=== PATIENT | female | born 1980 | race American Indian/Alaskan Native ===

== ENCOUNTER 2021-09-20 18:14 | Inpatient (IN) | payer MEDICAID ==
[2021-09-20] MEDS ORDERED: MAGNESIUM SULFATE 4 GM/100 ML BAG IV ONE (19:45)
[2021-09-20 19:48] LABS: Alanine Aminotransferase 26 units/L (7-56)
[2021-09-20] MEDS: hydrALAZINE 20 MG/1 ML INJ IV PRN (19:51)
[2021-09-20] MEDS ORDERED: MAGNESIUM SULFATE 40GM/1000ML 40 GM/1,000 ML BAG IV SCH (20:00)
[2021-09-20 20:13] LABS: Hematocrit 33.7 % (30.3-42.9); Hemoglobin 11.2 gm/dl (10.1-14.3); Mean Corpuscular HGB Conc 33 % (30-34); Platelet Count 163 K/mm3 (140-440); Red Blood Count 4.91 M/mm3 (3.65-5.03); Red Cell Distribution Width 17.8 % (13.2-15.2)
[2021-09-20 20:20] LABS: Bacteria,Urine 1+ /HPF (Negative); Bilirubin,Urine NEG (Negative); Blood,Urine NEG (Negative); Color,Urine Yellow (Yellow); Mucus,Urine FEW /HPF; RBC,Urine < 1.0 /HPF (0.0-6.0); Urobilinogen,Urine < 2.0 mg/dL (<2.0)
[2021-09-20 20:27] LABS: Mean Corpuscular Volume 69 fl (79-97)
[2021-09-20] MEDS ORDERED: LACTATED RINGERS 1,000 ML IV ONE (20:42)
[2021-09-20] MEDS ORDERED: DINOPROSTONE 10 MG VAG SUPP VG ONE (23:20)
--- NOTE | 2021-09-21 00:59 | Ultrasound Report ---
ULTRASOUND OBSTETRIC LIMITED INDICATION / CLINICAL INFORMATION: wellbeing. Amniotic fluid index. Clinical Gestational Age (GA) in weeks, days: 37 weeks 6 days TECHNIQUE: Transabdominal. COMPARISON: OB ultrasound 07/28/2021 FINDINGS: HEART RATE (beats per minute): 146 AMNIOTIC FLUID INDEX (cm) = 3.8 (normal = 7-24 cm) PRESENTATION: Cephalic. ADDITIONAL FINDINGS: None. IMPRESSION: 1. Oligohydramnios. Ruptured membranes not excluded. Signer Name: Galo Sharma II, MD Signed: 09/21/2021 12:55 AM Workstation Name: [id number]
--- NOTE | 2021-09-21 02:31 | Ultrasound Report ---
US OB BPP wo non-stress INDICATION / CLINICAL INFORMATION: wellbeing COMPARISON: Limited OB ultrasound 09/20/2021 and biophysical profile 07/28/2021 FINDINGS: BREATHING MOVEMENT = 2 GROSS BODY MOVEMENT = 2 TONE = 2 QUALITATIVE AMNIOTIC FLUID VOLUME = 2 TOTAL BIOPHYSICAL SCORE = 8/8 heart rate 146 bpm. IMPRESSION: 1. biophysical profile score 8/8 Signer Name: Galo Sharma II, MD Signed: 09/21/2021 2:26 AM Workstation Name: [id number]
--- NOTE | 2021-09-21 03:27 | History and Physical Report ---
History of Present Illness Date of examination: 09/21/21 Date of admission: 09/20/2021 Chief complaint: Elevated B/P History of present illness: 40 yo, @ 38.1 wks, initiated care with [facility] at 10.6 wks gestation. Her has been complicated by AMA, covid-19, HSV2, cHTN, silent carrier for alpha thalessemia and [place]. She was sent to [facility] yesterday for elevated B/Ps and PIH work-up. B/Ps were found to be in severe range, admitted for Magnesium therapy and IOL. Reports +FM. Denies any VB or LOF. Labs: B+, antibody negative; rubella immune; VDRL non-reactive; HBsAg negative; HIV negative; Hep C negative; GC/Chlamydia negative; [place] low-risk; 1 hr gtt 110; GBS negative. Past History Past Medical History: hypertension, other (PCOS) Past Surgical History: breast surgery, other ([place] cyst excision) [employer] History: herpes Family/Genetic History: hypertension, other (aneurysm) Social history: , Lives alone, full code. denies: smoking, alcohol abuse, prescription drug abuse, IV drug use - Obstetrical History Expected Date of Delivery: 10/05/21 Actual Gestation: 38 Week(s) 0 Day(s) : 2 Para: 0 Hx # Term Pregnancies: 0 Number of Pregnancies: 0 Spontaneous Abortions: 1 Induced : 0 Number of Living Children: 0 Medications and Allergies Allergies Allergy/AdvReac Type Severity Reaction Status Date / Time amoxicillin [Amoxicillin] Allergy Swelling Verified 09/20/21 20:31 pork derived (porcine) Allergy Hives Verified 09/20/21 20:31 soy Allergy Hives Verified 09/20/21 20:32 strawberry [[place]] Allergy Itching Verified 09/03/21 14:13 Home Medications Medication Instructions Recorded Confirmed Last Taken Type Promethazine /Codeine 5 ml PO Q6H PRN #60 ml 08/15/13 Unknown Rx [Phenergan/Codeine 6.25-10 mg/5 ml] Active Meds: Active Medications Hydralazine HCl (Hydralazine 20 Mg/1 Ml Inj) 10 mg IV Q30MIN PRN PRN Reason: Hypertension Last Admin: 09/20/21 19:51 Dose: 10 mg Magnesium Sulfate (Magnesium Sulfate 40gm/1000ml) 40 gm in 1,000 mls @ 50 mls/hr IV DIRECT [facility] Last Admin: 09/20/21 20:57 Dose: 2 gm/hr, 50 mls/hr Labetalol HCl (Labetalol 200 Mg Tab) 200 mg PO BID [facility] Last Admin: 09/20/21 21:02 Dose: 200 mg Review of Systems All systems: negative - Vital Signs Vital signs: Vital Signs Temp 98.1 F 09/20/21 18:50 Temp Pulse Resp BP Pulse Ox 98.8 F 87 112/58 94 09/20/21 20:34 09/21/21 03:13 09/21/21 03:08 09/21/21 03:13 - Physical Exam Cardiovascular: Regular rate Lungs: Positive: Normal air movement Abdomen: Positive: other (gravid, obese) Uterus: Positive: other (S>D) Extremities: Positive: edema Deep Tendon Reflex Grade: Normal +2 - Obstetrical FHR: category 1 Uterine Contraction Monitor Mode: External Uterine Contraction Pattern: Absent Results Result Diagrams: 09/20/21 Unknown 09/20/21 Unknown Abnormal lab results 09/20/21 09/21/21 Range/Units Unknown 00:37 MCV 69 L (79-97) fl MCH 23 L (28-32) pg RDW 17.8 H (13.2-15.2) % Magnesium 4.00 H (1.7-2.3) mg/dL All other labs normal. Assessment and Plan - Patient Problems (1) Pre-eclampsia added to pre-existing hypertension Current Visit: Yes Status: Acute Plan to address problem: Admit to L & D for Magnesium therapy Monitor B/P's closely IOL with cervidil, placed by physician Pain meds as desired per orders (2) Advanced maternal age (AMA), 40 years or greater Current Visit: Yes Status: Acute (3) HSV-2 seropositive Current Visit: Yes Status: Acute (4) Alpha thalassemia silent carrier Current Visit: Yes Status: Acute (5) Morbid obesity with BMI of 45.0-49.9, adult Current Visit: Yes Status: Acute
[2021-09-21] MEDS: ACETAMINOPHEN 325 MG TAB PO PRN ×3 (05:33→19:21)
[2021-09-21] MEDS ORDERED: LACTATED RINGERS 1,000 ML ONE (09:29)
[2021-09-21] MEDS ORDERED: BUTORPHANOL 2 MG/1 ML INJ IV PRN (11:00)
[2021-09-21] MEDS ORDERED: fentaNYL 100 MCG/2 ML INJ IV PRN (11:00)
[2021-09-21] MEDS ORDERED: ONDANSETRON 4 MG/2 ML INJ IV PRN (11:00)
[2021-09-21] MEDS ORDERED: TERBUTALINE 1 MG/1 ML INJ SUB-Q PRN (11:00)
[2021-09-21] MEDS ORDERED: CARBOPROST TROMETHAMINE 250 MCG/1 ML INJ IM PRN (11:00)
[2021-09-21] MEDS ORDERED: OXYTOCIN DRIP 30 UNITS/500 ML BAG IV SCH (11:00)
[2021-09-21] MEDS ORDERED: METHYLERGONOVINE MALEATE 0.2 MG/ML VIAL IM PRN (11:00)
[2021-09-21] MEDS ORDERED: OXYTOCIN 10 UNIT/1 ML INJ IM PRN (11:00)
[2021-09-21] MEDS ORDERED: LIDOCAINE (2%) 20 MG/1 ML VIAL 20 ML MDV INFILTRATI NR (11:00)
[2021-09-21] MEDS ORDERED: NALOXONE 0.4 MG/1 ML INJ IV PRN (11:00)
[2021-09-21] MEDS ORDERED: miSOPROStol 200 MCG TAB PR PRN (11:00)
[2021-09-21] MEDS ORDERED: LOPERAMIDE 2 MG CAP PO PRN (11:00)
[2021-09-21] MEDS: miSOPROStol 25 MCG TAB VG PRN ×3 (13:43→22:14)
--- NOTE | 2021-09-21 14:05 | Progress Note ---
Assessment and Plan A: IUP at 38w0d Chronic HTN with Superimposed Preeclampsia on Magnesium Sulfate for seizure prophylaxis Oligohydramnios Unfavorable Cervix Morbid Obesity Advanced Maternal Age GBS Negative P: Continue cervical ripening Continue to monitor maternal and status Subjective - Subjective Date of service: 09/21/21 Principal diagnosis: Chronic HTN with superimposed preeclampsia, AMA, Morbid Obesity Interval history: Pt reports a few contractions overnight with cervidil in place. Otherwise no complaints. Patient reports: movement normal, no new complaints, no loss of fluid, no vaginal bleeding Objective - Vital Signs Vital Signs: Vital Signs - 12hr 09/21/21 09/21/21 09/21/21 02:08 02:13 02:17 Temperature Pulse Rate 90 87 87 Respiratory Rate Blood Pressure 135/61 Blood Pressure [Right] O2 Sat by Pulse 93 93 94 Oximetry O2 Sat by Pulse Oximetry [ Throughout] 09/21/21 09/21/21 09/21/21 02:18 02:23 02:25 Temperature Pulse Rate 93 H 93 H 109 H Respiratory Rate Blood Pressure 123/63 Blood Pressure [Right] O2 Sat by Pulse 93 94 93 Oximetry O2 Sat by Pulse Oximetry [ Throughout] 09/21/21 09/21/21 09/21/21 02:28 02:33 02:38 Temperature Pulse Rate 93 H 98 H 95 H Respiratory Rate Blood Pressure 132/65 Blood Pressure [Right] O2 Sat by Pulse 92 91 92 Oximetry O2 Sat by Pulse Oximetry [ Throughout] 09/21/21 09/21/21 09/21/21 02:43 02:47 02:48 Temperature Pulse Rate 88 95 H Respiratory Rate Blood Pressure Blood Pressure [Right] O2 Sat by Pulse 91 91 95 Oximetry O2 Sat by Pulse Oximetry [ Throughout] 09/21/21 09/21/21 09/21/21 02:53 02:58 03:02 Temperature Pulse Rate 95 H 95 H 96 H Respiratory Rate Blood Pressure 119/61 Blood Pressure [Right] O2 Sat by Pulse 94 96 94 Oximetry O2 Sat by Pulse Oximetry [ Throughout] 09/21/21 09/21/21 09/21/21 03:03 03:07 03:08 Temperature Pulse Rate 93 H 100 H 94 H Respiratory Rate Blood Pressure 112/58 Blood Pressure [Right] O2 Sat by Pulse 95 93 94 Oximetry O2 Sat by Pulse Oximetry [ Throughout] 09/21/21 09/21/21 09/21/21 03:13 03:18 03:20 Temperature Pulse Rate 87 92 H 89 Respiratory Rate Blood Pressure Blood Pressure [Right] O2 Sat by Pulse 94 94 92 Oximetry O2 Sat by Pulse Oximetry [ Throughout] 09/21/21 09/21/21 09/21/21 03:23 03:27 03:28 Temperature Pulse Rate 81 101 H 96 H Respiratory Rate Blood Pressure 116/61 Blood Pressure [Right] O2 Sat by Pulse 94 94 94 Oximetry O2 Sat by Pulse Oximetry [ Throughout] 09/21/21 09/21/21 09/21/21 03:33 03:38 03:43 Temperature Pulse Rate 82 94 H 85 Respiratory Rate Blood Pressure 124/63 Blood Pressure [Right] O2 Sat by Pulse 95 93 95 Oximetry O2 Sat by Pulse Oximetry [ Throughout] 09/21/21 09/21/21 09/21/21 03:48 03:53 03:57 Temperature Pulse Rate 90 95 H 97 H Respiratory Rate Blood Pressure 126/68 Blood Pressure [Right] O2 Sat by Pulse 94 95 94 Oximetry O2 Sat by Pulse Oximetry [ Throughout] 09/21/21 09/21/21 09/21/21 03:58 04:03 04:08 Temperature Pulse Rate 98 H 95 H 97 H Respiratory Rate Blood Pressure 126/75 Blood Pressure [Right] O2 Sat by Pulse 97 94 83 L Oximetry O2 Sat by Pulse Oximetry [ Throughout] 09/21/21 09/21/21 09/21/21 04:13 04:15 04:18 Temperature Pulse Rate 96 H 96 H 95 H Respiratory Rate Blood Pressure Blood Pressure [Right] O2 Sat by Pulse 92 94 94 Oximetry O2 Sat by Pulse Oximetry [ Throughout] 09/21/21 09/21/21 09/21/21 04:23 04:28 04:33 Temperature Pulse Rate 85 100 H 80 Respiratory Rate Blood Pressure 135/79 Blood Pressure [Right] O2 Sat by Pulse 92 93 94 Oximetry O2 Sat by Pulse Oximetry [ Throughout] 09/21/21 09/21/21 09/21/21 04:34 04:38 04:39 Temperature Pulse Rate 82 94 H 83 Respiratory Rate Blood Pressure 147/78 Blood Pressure [Right] O2 Sat by Pulse 94 92 94 Oximetry O2 Sat by Pulse Oximetry [ Throughout] 09/21/21 09/21/21 09/21/21 04:43 04:48 04:53 Temperature Pulse Rate 95 H 85 90 Respiratory Rate Blood Pressure 138/81 Blood Pressure [Right] O2 Sat by Pulse 92 89 93 Oximetry O2 Sat by Pulse Oximetry [ Throughout] 09/21/21 09/21/21 09/21/21 04:58 05:03 05:07 Temperature 98.5 F Pulse Rate 86 93 H 92 H Respiratory 20 Rate Blood Pressure Blood Pressure 156/81 [Right] O2 Sat by Pulse 90 94 96 Oximetry O2 Sat by Pulse Oximetry [ Throughout] 09/21/21 09/21/21 09/21/21 05:08 05:09 05:13 Temperature Pulse Rate 93 H 94 H 92 H Respiratory Rate Blood Pressure 156/81 Blood Pressure [Right] O2 Sat by Pulse 96 95 Oximetry O2 Sat by Pulse Oximetry [ Throughout] 09/21/21 09/21/21 09/21/21 05:14 05:18 05:20 Temperature Pulse Rate 92 H 94 H 93 H Respiratory Rate Blood Pressure Blood Pressure [Right] O2 Sat by Pulse 94 93 94 Oximetry O2 Sat by Pulse Oximetry [ Throughout] 09/21/21 09/21/21 09/21/21 05:21 05:23 05:24 Temperature Pulse Rate 89 91 H 90 Respiratory Rate Blood Pressure 154/80 145/90 Blood Pressure [Right] O2 Sat by Pulse 95 Oximetry O2 Sat by Pulse Oximetry [ Throughout] 09/21/21 09/21/21 09/21/21 05:25 05:28 05:33 Temperature Pulse Rate 90 89 96 H Respiratory 20 Rate Blood Pressure Blood Pressure [Right] O2 Sat by Pulse 94 96 95 Oximetry O2 Sat by Pulse Oximetry [ Throughout] 09/21/21 09/21/21 09/21/21 05:38 05:43 05:44 Temperature Pulse Rate 91 H 94 H 87 Respiratory Rate Blood Pressure 150/88 Blood Pressure [Right] O2 Sat by Pulse 91 94 94 Oximetry O2 Sat by Pulse Oximetry [ Throughout] 09/21/21 09/21/21 09/21/21 05:48 05:53 05:58 Temperature Pulse Rate 98 H 92 H 90 Respiratory Rate Blood Pressure 154/89 Blood Pressure [Right] O2 Sat by Pulse 94 96 95 Oximetry O2 Sat by Pulse Oximetry [ Throughout] 09/21/21 09/21/21 09/21/21 06:01 06:03 06:07 Temperature Pulse Rate 92 H 87 93 H Respiratory Rate Blood Pressure Blood Pressure [Right] O2 Sat by Pulse 94 96 94 Oximetry O2 Sat by Pulse Oximetry [ Throughout] 09/21/21 09/21/21 09/21/21 06:08 06:12 06:13 Temperature Pulse Rate 87 78 88 Respiratory Rate Blood Pressure 127/66 Blood Pressure [Right] O2 Sat by Pulse 95 94 94 Oximetry O2 Sat by Pulse Oximetry [ Throughout] 09/21/21 09/21/21 09/21/21 06:18 06:19 06:23 Temperature Pulse Rate 92 H 80 97 H Respiratory Rate Blood Pressure 131/68 Blood Pressure [Right] O2 Sat by Pulse 90 94 95 Oximetry O2 Sat by Pulse Oximetry [ Throughout] 09/21/21 09/21/21 09/21/21 06:25 06:28 06:33 Temperature Pulse Rate 79 82 85 Respiratory Rate Blood Pressure Blood Pressure [Right] O2 Sat by Pulse 94 93 91 Oximetry O2 Sat by Pulse Oximetry [ Throughout] 09/21/21 09/21/21 09/21/21 06:38 06:43 06:48 Temperature Pulse Rate 84 82 81 Respiratory Rate Blood Pressure 129/63 Blood Pressure [Right] O2 Sat by Pulse 95 92 94 Oximetry O2 Sat by Pulse Oximetry [ Throughout] 09/21/21 09/21/21 09/21/21 06:49 06:53 06:54 Temperature Pulse Rate 75 86 78 Respiratory Rate Blood Pressure 127/61 Blood Pressure [Right] O2 Sat by Pulse 94 95 94 Oximetry O2 Sat by Pulse Oximetry [ Throughout] 09/21/21 09/21/21 09/21/21 06:58 07:02 07:03 Temperature Pulse Rate 86 82 93 H Respiratory Rate Blood Pressure Blood Pressure [Right] O2 Sat by Pulse 96 94 95 Oximetry O2 Sat by Pulse Oximetry [ Throughout] 09/21/21 09/21/21 09/21/21 07:07 07:08 07:09 Temperature Pulse Rate 82 94 H 82 Respiratory Rate Blood Pressure 145/79 Blood Pressure [Right] O2 Sat by Pulse 94 96 Oximetry O2 Sat by Pulse Oximetry [ Throughout] 09/21/21 09/21/21 09/21/21 07:13 07:17 07:18 Temperature Pulse Rate 77 82 79 Respiratory Rate Blood Pressure Blood Pressure [Right] O2 Sat by Pulse 93 94 94 Oximetry O2 Sat by Pulse Oximetry [ Throughout] 09/21/21 09/21/21 09/21/21 07:23 07:28 07:29 Temperature Pulse Rate 81 95 H Respiratory Rate Blood Pressure 141/75 Blood Pressure [Right] O2 Sat by Pulse 92 95 Oximetry O2 Sat by Pulse 95 Oximetry [ Throughout] 09/21/21 09/21/21 09/21/21 07:33 07:35 07:38 Temperature Pulse Rate 91 H 100 H 93 H Respiratory Rate Blood Pressure Blood Pressure [Right] O2 Sat by Pulse 96 94 96 Oximetry O2 Sat by Pulse Oximetry [ Throughout] 09/21/21 09/21/21 09/21/21 07:39 07:41 07:43 Temperature Pulse Rate 86 90 90 Respiratory Rate Blood Pressure 143/71 Blood Pressure [Right] O2 Sat by Pulse 94 96 Oximetry O2 Sat by Pulse Oximetry [ Throughout] 09/21/21 09/21/21 09/21/21 07:46 07:48 07:51 Temperature Pulse Rate 92 H 93 H 91 H Respiratory Rate Blood Pressure Blood Pressure [Right] O2 Sat by Pulse 93 95 94 Oximetry O2 Sat by Pulse Oximetry [ Throughout] 09/21/21 09/21/21 09/21/21 07:53 07:56 07:58 Temperature Pulse Rate 94 H 95 H 90 Respiratory Rate Blood Pressure 146/86 Blood Pressure [Right] O2 Sat by Pulse 94 94 94 Oximetry O2 Sat by Pulse Oximetry [ Throughout] 09/21/21 09/21/21 09/21/21 08:03 08:04 08:08 Temperature Pulse Rate 89 96 H 92 H Respiratory Rate Blood Pressure 140/80 Blood Pressure [Right] O2 Sat by Pulse 96 94 93 Oximetry O2 Sat by Pulse Oximetry [ Throughout] 09/21/21 09/21/21 09/21/21 08:10 08:13 08:18 Temperature Pulse Rate 83 96 H 99 H Respiratory Rate Blood Pressure Blood Pressure [Right] O2 Sat by Pulse 94 93 98 Oximetry O2 Sat by Pulse Oximetry [ Throughout] 09/21/21 09/21/21 09/21/21 08:23 08:24 08:28 Temperature Pulse Rate 94 H 93 H 88 Respiratory Rate Blood Pressure 146/71 Blood Pressure [Right] O2 Sat by Pulse 95 93 96 Oximetry O2 Sat by Pulse Oximetry [ Throughout] 09/21/21 09/21/21 09/21/21 08:33 08:36 08:38 Temperature Pulse Rate 87 96 H 91 H Respiratory Rate Blood Pressure 131/61 Blood Pressure [Right] O2 Sat by Pulse 95 94 95 Oximetry O2 Sat by Pulse Oximetry [ Throughout] 09/21/21 09/21/21 09/21/21 08:41 08:43 08:48 Temperature 97.5 F L Pulse Rate 91 H 87 89 Respiratory 15 Rate Blood Pressure Blood Pressure 131/61 [Right] O2 Sat by Pulse 96 95 96 Oximetry O2 Sat by Pulse Oximetry [ Throughout] 09/21/21 09/21/21 09/21/21 08:53 08:58 09:03 Temperature Pulse Rate 90 101 H 99 H Respiratory Rate Blood Pressure 138/75 Blood Pressure [Right] O2 Sat by Pulse 93 95 96 Oximetry O2 Sat by Pulse Oximetry [ Throughout] 09/21/21 09/21/21 09/21/21 09:06 09:08 09:13 Temperature Pulse Rate 83 87 85 Respiratory Rate Blood Pressure 142/79 Blood Pressure [Right] O2 Sat by Pulse 94 96 95 Oximetry O2 Sat by Pulse Oximetry [ Throughout] 09/21/21 09/21/21 09/21/21 09:16 09:18 09:23 Temperature Pulse Rate 87 93 H 98 H Respiratory Rate Blood Pressure 143/76 Blood Pressure [Right] O2 Sat by Pulse 94 95 97 Oximetry O2 Sat by Pulse Oximetry [ Throughout] 09/21/21 09/21/21 09/21/21 09:28 09:33 09:36 Temperature Pulse Rate 94 H 100 H 86 Respiratory Rate Blood Pressure Blood Pressure [Right] O2 Sat by Pulse 97 97 94 Oximetry O2 Sat by Pulse Oximetry [ Throughout] 09/21/21 09/21/21 09/21/21 09:38 09:43 09:48 Temperature Pulse Rate 88 89 89 Respiratory Rate Blood Pressure Blood Pressure [Right] O2 Sat by Pulse 97 97 95 Oximetry O2 Sat by Pulse Oximetry [ Throughout] 09/21/21 09/21/21 09/21/21 09:53 09:58 10:03 Temperature Pulse Rate 92 H 93 H 87 Respiratory Rate Blood Pressure 128/61 Blood Pressure [Right] O2 Sat by Pulse 96 97 96 Oximetry O2 Sat by Pulse Oximetry [ Throughout] 02/18/22 02/18/22 02/18/22 10:08 10:13 10:18 Temperature Pulse Rate 92 H 91 H 96 H Respiratory Rate Blood Pressure 137/65 Blood Pressure [Right] O2 Sat by Pulse 96 96 95 Oximetry O2 Sat by Pulse Oximetry [ Throughout] 09/21/21 09/21/21 09/21/21 10:23 10:25 10:28 Temperature Pulse Rate 90 89 90 Respiratory Rate Blood Pressure 152/65 Blood Pressure [Right] O2 Sat by Pulse 96 94 95 Oximetry O2 Sat by Pulse Oximetry [ Throughout] 09/21/21 09/21/21 09/21/21 10:33 10:38 10:39 Temperature Pulse Rate 92 H 94 H 93 H Respiratory Rate Blood Pressure 111/59 Blood Pressure [Right] O2 Sat by Pulse 95 95 Oximetry O2 Sat by Pulse Oximetry [ Throughout] 09/21/21 09/21/21 09/21/21 10:43 10:46 10:48 Temperature Pulse Rate 90 86 91 H Respiratory Rate Blood Pressure Blood Pressure [Right] O2 Sat by Pulse 96 94 95 Oximetry O2 Sat by Pulse Oximetry [ Throughout] 09/21/21 09/21/21 09/21/21 10:53 10:54 10:58 Temperature Pulse Rate 89 88 90 Respiratory Rate Blood Pressure 117/58 Blood Pressure [Right] O2 Sat by Pulse 95 95 Oximetry O2 Sat by Pulse Oximetry [ Throughout] 09/21/21 09/21/21 09/21/21 10:59 11:03 11:08 Temperature Pulse Rate 87 98 H 92 H Respiratory Rate Blood Pressure Blood Pressure [Right] O2 Sat by Pulse 94 96 96 Oximetry O2 Sat by Pulse Oximetry [ Throughout] 09/21/21 09/21/21 09/21/21 11:09 11:13 11:18 Temperature Pulse Rate 89 91 H 90 Respiratory Rate Blood Pressure 127/61 Blood Pressure [Right] O2 Sat by Pulse 96 97 Oximetry O2 Sat by Pulse Oximetry [ Throughout] 09/21/21 09/21/21 09/21/21 11:23 11:28 11:33 Temperature Pulse Rate 91 H 93 H 92 H Respiratory Rate Blood Pressure 119/60 Blood Pressure [Right] O2 Sat by Pulse 97 96 96 Oximetry O2 Sat by Pulse Oximetry [ Throughout] 09/21/21 09/21/21 09/21/21 11:38 11:43 11:48 Temperature Pulse Rate 90 92 H 88 Respiratory Rate Blood Pressure 130/64 Blood Pressure [Right] O2 Sat by Pulse 97 97 96 Oximetry O2 Sat by Pulse Oximetry [ Throughout] 09/21/21 09/21/21 09/21/21 11:53 11:58 12:03 Temperature Pulse Rate 91 H 94 H 96 H Respiratory Rate Blood Pressure 133/66 Blood Pressure [Right] O2 Sat by Pulse 96 96 97 Oximetry O2 Sat by Pulse Oximetry [ Throughout] 09/21/21 09/21/21 09/21/21 12:08 12:13 12:18 Temperature Pulse Rate 97 H 94 H 89 Respiratory Rate Blood Pressure Blood Pressure [Right] O2 Sat by Pulse 97 97 96 Oximetry O2 Sat by Pulse Oximetry [ Throughout] 09/21/21 09/21/21 09/21/21 12:23 12:24 12:28 Temperature Pulse Rate 90 93 H 93 H Respiratory Rate Blood Pressure 127/81 Blood Pressure [Right] O2 Sat by Pulse 96 97 Oximetry O2 Sat by Pulse Oximetry [ Throughout] 09/21/21 09/21/21 09/21/21 12:33 12:38 12:39 Temperature Pulse Rate 98 H 85 82 Respiratory Rate Blood Pressure 142/79 Blood Pressure [Right] O2 Sat by Pulse 97 96 94 Oximetry O2 Sat by Pulse Oximetry [ Throughout] 09/21/21 09/21/21 09/21/21 12:43 12:48 12:50 Temperature Pulse Rate 92 H 92 H 101 H Respiratory Rate Blood Pressure Blood Pressure [Right] O2 Sat by Pulse 96 96 88 Oximetry O2 Sat by Pulse Oximetry [ Throughout] 09/21/21 09/21/21 09/21/21 12:53 12:56 12:58 Temperature Pulse Rate 95 H 94 H Respiratory Rate Blood Pressure 127/77 Blood Pressure [Right] O2 Sat by Pulse 96 93 95 Oximetry O2 Sat by Pulse Oximetry [ Throughout] 09/21/21 09/21/21 09/21/21 13:02 13:03 13:07 Temperature Pulse Rate 91 H 94 H Respiratory Rate Blood Pressure Blood Pressure [Right] O2 Sat by Pulse 0 L 95 94 Oximetry O2 Sat by Pulse Oximetry [ Throughout] 09/21/21 09/21/21 09/21/21 13:08 13:12 13:14 Temperature Pulse Rate 98 H 90 Respiratory Rate Blood Pressure 140/78 Blood Pressure [Right] O2 Sat by Pulse 95 82 L 94 Oximetry O2 Sat by Pulse Oximetry [ Throughout] 09/21/21 09/21/21 09/21/21 13:21 13:23 13:26 Temperature Pulse Rate 99 H 94 H 100 H Respiratory Rate Blood Pressure 130/68 Blood Pressure [Right] O2 Sat by Pulse 94 93 95 Oximetry O2 Sat by Pulse Oximetry [ Throughout] 09/21/21 09/21/21 09/21/21 13:28 13:32 13:38 Temperature Pulse Rate 101 H 99 H 95 H Respiratory Rate Blood Pressure Blood Pressure [Right] O2 Sat by Pulse 94 96 97 Oximetry O2 Sat by Pulse Oximetry [ Throughout] 09/21/21 09/21/21 09/21/21 13:39 13:43 13:50 Temperature Pulse Rate 93 H 97 H 94 H Respiratory Rate Blood Pressure 124/72 Blood Pressure [Right] O2 Sat by Pulse 95 97 Oximetry O2 Sat by Pulse Oximetry [ Throughout] 09/21/21 13:54 Temperature Pulse Rate 93 H Respiratory Rate Blood Pressure 132/72 Blood Pressure [Right] O2 Sat by Pulse Oximetry O2 Sat by Pulse Oximetry [ Throughout] - Exam Breasts: deferred Abdomen: Present: soft (obese, gravid ) Uterus: Present: normal (gravid ) FHR: auscultation normal Uterine Contraction Monitor Mode: External Cervical Dilatation: 0 (prior to cervidil placement ) Uterine Contraction Pattern: Irregular Uterine Tone Measurement Phase: Resting Uterine Contraction Intensity: Mild Extremities: edema (1+) - Labs Labs: Abnormal Labs 09/20/21 09/21/21 09/21/21 Unknown 00:37 07:33 MCV 69 L MCH 23 L RDW 17.8 H Magnesium 4.00 H 5.10 H Laboratory Results - last 24 hr 09/20/21 09/20/21 09/20/21 20:06 Unknown Unknown WBC 8.0 RBC 4.91 Hgb 11.2 Hct 33.7 MCV 69 L MCH 23 L MCHC 33 RDW 17.8 H Plt Count 163 Creatinine Estimated GFR Uric Acid Magnesium AST ALT Lactate Dehydrogenase Urine Color Yellow Urine Turbidity Slightly-cloudy Urine pH 6.0 Ur Specific [place] 1.017 Urine Protein 100 mg/dl Urine Glucose (UA) Neg Urine Ketones Neg Urine Blood Neg Urine Nitrite Neg Urine Bilirubin Neg Urine Urobilinogen < 2.0 Ur Leukocyte Esterase Neg Urine WBC (Auto) 1.0 Urine RBC (Auto) < 1.0 U Epithel Cells (Auto) 9.0 Urine Bacteria (Auto) 1+ Urine Mucus Few Urine Yeast (Budding) Few Blood Type B POSITIVE Antibody Screen Negative 09/20/21 09/21/21 09/21/21 Unknown 00:37 07:33 WBC RBC Hgb Hct MCV MCH MCHC RDW Plt Count Creatinine 0.8 Estimated GFR > 60 Uric Acid 5.0 Magnesium 4.00 H 5.10 H AST 20 ALT 26 Lactate Dehydrogenase 163 Urine Color Urine Turbidity Urine pH Ur Specific [place] Urine Protein Urine Glucose (UA) Urine Ketones Urine Blood Urine Nitrite Urine Bilirubin Urine Urobilinogen Ur Leukocyte Esterase Urine WBC (Auto) Urine RBC (Auto) U Epithel Cells (Auto) Urine Bacteria (Auto) Urine Mucus Urine Yeast (Budding) Blood Type Antibody Screen - Results US- obstetric: report reviewed
[2021-09-21] MEDS: valACYclovir 500 MG TAB PO SCH (15:55)
[2021-09-21] MEDS ORDERED: MINERAL OIL 30 ML ORAL LIQD PO PRN (22:00)
[2021-09-21] MEDS: LACTATED RINGERS 1,000 ML IV SCH (22:02)
[2021-09-22] MEDS: miSOPROStol 25 MCG TAB VG PRN ×2 (02:30→09:26)
--- NOTE | 2021-09-22 13:52 | Progress Note ---
Assessment and Plan Hospital day 3 of this induction for morbid obesity and preeclampsia. Patient is doing well. Patient remains on magnesium therapy. Patient reported leaking fluid, however there was no evidence of same on his exam. ROM plus will be sent. Continue induction Subjective - Subjective Date of service: 09/22/21 Principal diagnosis: Chronic HTN with superimposed preeclampsia, AMA, Morbid Obesity Interval history: I feel fine Patient reports: loss of fluid, movement normal, no new complaints, no vaginal bleeding Objective - Vital Signs Vital Signs: Vital Signs - 12hr 09/22/21 09/22/21 09/22/21 01:52 01:57 01:59 Temperature Pulse Rate 85 81 85 Respiratory Rate Blood Pressure 132/63 O2 Sat by Pulse 96 95 Oximetry O2 Sat by Pulse Oximetry [ Throughout] 09/22/21 09/22/21 09/22/21 02:02 02:03 02:07 Temperature Pulse Rate 83 82 85 Respiratory Rate Blood Pressure O2 Sat by Pulse 96 93 96 Oximetry O2 Sat by Pulse Oximetry [ Throughout] 09/22/21 09/22/21 09/22/21 02:09 02:12 02:17 Temperature Pulse Rate 90 92 H 97 H Respiratory Rate Blood Pressure O2 Sat by Pulse 92 95 96 Oximetry O2 Sat by Pulse Oximetry [ Throughout] 09/22/21 09/22/21 09/22/21 02:22 02:27 02:29 Temperature Pulse Rate 97 H 98 H 90 Respiratory Rate Blood Pressure 149/78 O2 Sat by Pulse 96 98 Oximetry O2 Sat by Pulse Oximetry [ Throughout] 09/22/21 09/22/21 09/22/21 02:32 02:37 02:42 Temperature Pulse Rate 90 88 92 H Respiratory Rate Blood Pressure O2 Sat by Pulse 98 97 98 Oximetry O2 Sat by Pulse Oximetry [ Throughout] 09/22/21 09/22/21 09/22/21 02:47 02:52 02:57 Temperature 98.8 F Pulse Rate 94 H 94 H 92 H Respiratory 20 Rate Blood Pressure O2 Sat by Pulse 98 98 96 Oximetry O2 Sat by Pulse Oximetry [ Throughout] 09/22/21 09/22/21 09/22/21 02:59 03:02 03:07 Temperature Pulse Rate 87 88 91 H Respiratory Rate Blood Pressure 146/76 O2 Sat by Pulse 98 98 Oximetry O2 Sat by Pulse Oximetry [ Throughout] 09/22/21 09/22/2109/22/22 03:12 03:17 03:22 Temperature Pulse Rate 88 91 H 90 Respiratory Rate Blood Pressure O2 Sat by Pulse 98 99 98 Oximetry O2 Sat by Pulse Oximetry [ Throughout] 09/22/21 09/22/21 09/22/21 03:27 03:29 03:30 Temperature 98.8 F Pulse Rate 92 H 91 H Respiratory Rate Blood Pressure 142/76 O2 Sat by Pulse 97 Oximetry O2 Sat by Pulse Oximetry [ Throughout] 09/22/21 09/22/21 09/22/21 03:32 03:37 03:42 Temperature Pulse Rate 95 H 91 H 93 H Respiratory Rate Blood Pressure O2 Sat by Pulse 98 96 96 Oximetry O2 Sat by Pulse Oximetry [ Throughout] 09/22/21 09/22/21 09/22/21 03:47 03:52 03:57 Temperature Pulse Rate 94 H 94 H 96 H Respiratory Rate Blood Pressure O2 Sat by Pulse 96 98 98 Oximetry O2 Sat by Pulse Oximetry [ Throughout] 09/22/21 09/22/21 09/22/21 04:02 04:07 04:12 Temperature Pulse Rate 94 H 91 H 90 Respiratory Rate Blood Pressure O2 Sat by Pulse 96 97 96 Oximetry O2 Sat by Pulse Oximetry [ Throughout] 09/22/21 09/22/21 09/22/21 04:17 04:22 04:27 Temperature Pulse Rate 92 H 85 85 Respiratory Rate Blood Pressure O2 Sat by Pulse 97 96 93 Oximetry O2 Sat by Pulse Oximetry [ Throughout] 09/22/21 09/22/21 09/22/21 04:32 04:33 04:37 Temperature Pulse Rate 86 87 79 Respiratory Rate Blood Pressure 146/73 O2 Sat by Pulse 97 95 Oximetry O2 Sat by Pulse Oximetry [ Throughout] 09/22/21 09/22/21 09/22/21 04:42 04:47 04:52 Temperature Pulse Rate 90 92 H 87 Respiratory Rate Blood Pressure O2 Sat by Pulse 97 97 96 Oximetry O2 Sat by Pulse Oximetry [ Throughout] 09/22/21 09/22/21 09/22/21 04:55 04:57 05:02 Temperature Pulse Rate 89 97 H 84 Respiratory Rate Blood Pressure O2 Sat by Pulse 93 98 96 Oximetry O2 Sat by Pulse Oximetry [ Throughout] 09/22/21 09/22/21 09/22/21 05:07 05:12 05:17 Temperature Pulse Rate 77 74 79 Respiratory Rate Blood Pressure O2 Sat by Pulse 96 95 96 Oximetry O2 Sat by Pulse Oximetry [ Throughout] 09/22/21 09/22/21 09/22/21 05:22 05:27 05:30 Temperature Pulse Rate 91 H 92 H 89 Respiratory Rate Blood Pressure 139/76 O2 Sat by Pulse 98 96 Oximetry O2 Sat by Pulse Oximetry [ Throughout] 09/22/21 09/22/21 09/22/21 05:32 05:35 05:37 Temperature 98.7 F Pulse Rate 83 85 Respiratory 20 Rate Blood Pressure O2 Sat by Pulse 97 98 98 Oximetry O2 Sat by Pulse Oximetry [ Throughout] 09/22/21 09/22/21 09/22/21 05:42 05:47 05:52 Temperature Pulse Rate 92 H 87 86 Respiratory Rate Blood Pressure O2 Sat by Pulse 98 97 97 Oximetry O2 Sat by Pulse Oximetry [ Throughout] 09/22/21 09/22/21 09/22/21 05:57 05:59 06:02 Temperature Pulse Rate 84 86 86 Respiratory Rate Blood Pressure 143/75 O2 Sat by Pulse 96 97 Oximetry O2 Sat by Pulse Oximetry [ Throughout] 09/22/21 09/22/21 09/22/21 06:07 06:12 06:17 Temperature Pulse Rate 92 H 91 H 91 H Respiratory Rate Blood Pressure O2 Sat by Pulse 97 98 98 Oximetry O2 Sat by Pulse Oximetry [ Throughout] 09/22/21 09/22/21 09/22/21 06:22 06:27 06:30 Temperature Pulse Rate 93 H 88 Respiratory Rate Blood Pressure O2 Sat by Pulse 98 96 83 L Oximetry O2 Sat by Pulse Oximetry [ Throughout] 09/22/21 09/22/21 09/22/21 06:33 06:49 06:50 Temperature Pulse Rate 58 L 89 Respiratory Rate Blood Pressure 142/90 O2 Sat by Pulse 92 95 Oximetry O2 Sat by Pulse Oximetry [ Throughout] 09/22/21 09/22/21 09/22/21 07:00 07:06 07:07 Temperature Pulse Rate 86 78 88 Respiratory Rate Blood Pressure 169/92 157/73 O2 Sat by Pulse 90 Oximetry O2 Sat by Pulse Oximetry [ Throughout] 09/22/21 09/22/21 09/22/21 07:15 07:18 07:26 Temperature Pulse Rate 147 H 32 L Respiratory Rate Blood Pressure O2 Sat by Pulse 0 L 93 Oximetry O2 Sat by Pulse 98 Oximetry [ Throughout] 09/22/21 09/22/21 09/22/21 07:34 07:39 07:48 Temperature Pulse Rate 105 H 74 Respiratory Rate Blood Pressure O2 Sat by Pulse 0 L 0 L 86 Oximetry O2 Sat by Pulse Oximetry [ Throughout] 09/22/21 09/22/21 09/22/21 07:58 08:05 09:03 Temperature Pulse Rate 94 H 88 96 H Respiratory Rate Blood Pressure 170/91 146/80 O2 Sat by Pulse 87 Oximetry O2 Sat by Pulse Oximetry [ Throughout] 09/22/21 09/22/21 09/22/21 09:26 09:27 09:29 Temperature Pulse Rate 96 H 102 H 100 H Respiratory Rate Blood Pressure 146/80 173/103 O2 Sat by Pulse 98 Oximetry O2 Sat by Pulse Oximetry [ Throughout] 09/22/21 09/22/21 09/22/21 09:32 09:36 09:37 Temperature Pulse Rate 97 H 98 H 99 H Respiratory Rate Blood Pressure 177/87 O2 Sat by Pulse 98 99 Oximetry O2 Sat by Pulse Oximetry [ Throughout] 09/22/21 09/22/21 09/22/21 09:42 09:47 09:52 Temperature Pulse Rate 96 H 98 H 99 H Respiratory Rate Blood Pressure O2 Sat by Pulse 98 99 98 Oximetry O2 Sat by Pulse Oximetry [ Throughout] 09/22/21 09/22/21 09/22/21 09:57 09:59 10:02 Temperature Pulse Rate 100 H 98 H 100 H Respiratory Rate Blood Pressure 171/91 O2 Sat by Pulse 98 98 Oximetry O2 Sat by Pulse Oximetry [ Throughout] 09/22/21 09/22/21 09/22/21 10:07 10:12 10:17 Temperature Pulse Rate 100 H 96 H 104 H Respiratory Rate Blood Pressure O2 Sat by Pulse 96 98 99 Oximetry O2 Sat by Pulse Oximetry [ Throughout] 09/22/21 09/22/21 09/22/21 10:22 10:27 10:29 Temperature Pulse Rate 103 H 101 H 96 H Respiratory Rate Blood Pressure 136/72 O2 Sat by Pulse 98 99 Oximetry O2 Sat by Pulse Oximetry [ Throughout] 09/22/21 09/22/21 09/22/21 10:32 10:37 10:42 Temperature Pulse Rate 96 H 96 H 99 H Respiratory Rate Blood Pressure O2 Sat by Pulse 99 98 98 Oximetry O2 Sat by Pulse Oximetry [ Throughout] 09/22/21 09/22/21 09/22/21 10:47 10:52 10:57 Temperature Pulse Rate 90 95 H 101 H Respiratory Rate Blood Pressure O2 Sat by Pulse 98 98 99 Oximetry O2 Sat by Pulse Oximetry [ Throughout] 09/22/21 09/22/21 09/22/21 10:59 11:02 11:07 Temperature Pulse Rate 91 H 93 H 100 H Respiratory Rate Blood Pressure 142/70 O2 Sat by Pulse 96 96 Oximetry O2 Sat by Pulse Oximetry [ Throughout] 09/22/21 09/22/21 09/22/21 11:12 11:17 11:18 Temperature Pulse Rate 90 78 76 Respiratory Rate Blood Pressure O2 Sat by Pulse 97 95 93 Oximetry O2 Sat by Pulse Oximetry [ Throughout] 09/22/21 09/22/21 09/22/21 11:22 11:24 11:27 Temperature Pulse Rate 76 84 83 Respiratory Rate Blood Pressure O2 Sat by Pulse 96 93 95 Oximetry O2 Sat by Pulse Oximetry [ Throughout] 09/22/21 09/22/21 09/22/21 11:29 11:32 11:37 Temperature Pulse Rate 99 H 107 H 80 Respiratory Rate Blood Pressure 132/63 O2 Sat by Pulse 98 96 Oximetry O2 Sat by Pulse Oximetry [ Throughout] 09/22/21 09/22/21 09/22/21 11:38 11:42 11:47 Temperature Pulse Rate 91 H 74 86 Respiratory Rate Blood Pressure O2 Sat by Pulse 92 94 94 Oximetry O2 Sat by Pulse Oximetry [ Throughout] 09/22/21 09/22/21 09/22/21 11:52 11:54 11:57 Temperature Pulse Rate 85 82 90 Respiratory Rate Blood Pressure O2 Sat by Pulse 97 91 96 Oximetry O2 Sat by Pulse Oximetry [ Throughout] 09/22/21 09/22/21 09/22/21 11:59 12:01 12:02 Temperature Pulse Rate 90 86 78 Respiratory Rate Blood Pressure 128/66 O2 Sat by Pulse 93 94 Oximetry O2 Sat by Pulse Oximetry [ Throughout] 09/22/21 09/22/21 09/22/21 12:07 12:12 12:17 Temperature Pulse Rate 89 72 74 Respiratory Rate Blood Pressure O2 Sat by Pulse 96 93 93 Oximetry O2 Sat by Pulse Oximetry [ Throughout] 09/22/21 09/22/21 09/22/21 12:22 12:23 12:27 Temperature Pulse Rate 72 74 79 Respiratory Rate Blood Pressure O2 Sat by Pulse 96 92 94 Oximetry O2 Sat by Pulse Oximetry [ Throughout] 09/22/21 09/22/21 09/22/21 12:29 12:32 12:37 Temperature Pulse Rate 91 H 75 97 H Respiratory Rate Blood Pressure 142/65 O2 Sat by Pulse 93 95 96 Oximetry O2 Sat by Pulse Oximetry [ Throughout] 09/22/21 09/22/21 09/22/21 12:42 12:47 12:52 Temperature Pulse Rate 94 H 89 92 H Respiratory Rate Blood Pressure O2 Sat by Pulse 97 97 99 Oximetry O2 Sat by Pulse Oximetry [ Throughout] 09/22/21 09/22/21 09/22/21 12:57 12:59 13:02 Temperature Pulse Rate 92 H 89 94 H Respiratory Rate Blood Pressure 152/90 O2 Sat by Pulse 98 98 Oximetry O2 Sat by Pulse Oximetry [ Throughout] 09/22/21 09/22/21 09/22/21 13:07 13:12 13:17 Temperature Pulse Rate 100 H 95 H 89 Respiratory Rate Blood Pressure O2 Sat by Pulse 97 97 98 Oximetry O2 Sat by Pulse Oximetry [ Throughout] 09/22/21 09/22/21 09/22/21 13:22 13:27 13:29 Temperature Pulse Rate 95 H 93 H 88 Respiratory Rate Blood Pressure 143/68 O2 Sat by Pulse 97 98 Oximetry O2 Sat by Pulse Oximetry [ Throughout] 09/22/21 09/22/21 09/22/21 13:32 13:37 13:42 Temperature Pulse Rate 90 91 H 90 Respiratory Rate Blood Pressure O2 Sat by Pulse 97 98 97 Oximetry O2 Sat by Pulse Oximetry [ Throughout] 09/22/21 13:47 Temperature Pulse Rate 92 H Respiratory Rate Blood Pressure O2 Sat by Pulse 98 Oximetry O2 Sat by Pulse Oximetry [ Throughout] - Exam Breasts: deferred Cardiovascular: Regular rate, Normal S1, Normal S2 Lungs: Clear to auscultation, Normal air movement Abdomen: Present: normal appearance, soft. Absent: distention, tenderness Uterus: Present: normal FHR: auscultation normal - Labs Labs: Abnormal Labs 09/20/21 09/21/21 09/21/21 Unknown 00:37 07:33 MCV 69 L MCH 23 L RDW 17.8 H Magnesium 4.00 H 5.10 H 09/21/21 09/21/21 09/22/21 13:39 22:05 04:02 MCV MCH RDW Magnesium 5.50 H 5.50 H 5.50 H 09/22/21 09:58 MCV MCH RDW Magnesium 5.30 H Laboratory Results - last 24 hr 09/21/21 09/21/21 09/21/21 10:15 13:39 22:05 Magnesium 5.50 H 5.50 H SARS-CoV-2 (PCR) Negative 09/22/21 09/22/21 04:02 09:58 Magnesium 5.50 H 5.30 H SARS-CoV-2 (PCR)
[2021-09-22] MEDS: valACYclovir 500 MG TAB PO SCH (14:50)
[2021-09-22] MEDS: OXYTOCIN DRIP 30 UNITS/500 ML BAG IV SCH (14:50)
[2021-09-22] MEDS: hydrALAZINE 20 MG/1 ML INJ IV PRN (22:08)
[2021-09-23] MEDS ORDERED: NALOXONE 2 MG/2 ML INJ IV PRN (06:03)
[2021-09-23] MEDS ORDERED: ePHEDrine SULFATE 50 MG/1 ML INJ IV PRN (06:03)
--- NOTE | 2021-09-23 06:03 | Anesthesia Consultation ---
Anesthesia Consult and Med Hx Date of service: 09/23/21 - Airway Anesthetic Teeth Evaluation: Good ROM Head & Neck: Adequate Mental/Hyoid Distance: Adequate Mallampati Class: Class II Intubation Access Assessment: Probably Good - Pulmonary Exam CTA: Yes - Cardiac Exam Cardiac Exam: RRR - Pre-Operative Health Status ASA Pre-Surgery Classification: ASA3 Proposed Anesthetic Plan: Epidural - Pulmonary Hx Asthma: No COPD: No Hx Pneumonia: No - Cardiovascular System Hx Hypertension: Yes (chtn) - Central Nervous System Hx Seizures: No Hx Psychiatric Problems: No - Endocrine Hx Renal Disease: No Hx End Stage Renal Disease: No Hx Hypothyroidism: No Hx Hyperthyroidism: No - Hematic Hx Anemia: Yes Hx Sickle Cell Disease: No - Other Systems Hx Alcohol Use: No Hx Obesity: Yes
--- NOTE | 2021-09-23 06:28 | Progress Note ---
Labor Epidural - Labor Epidural Start Time: 06:16 Stop Time: 06:21 Performed by:: RAFAEL BACON Procedure: Patient is requesting epidural for labor pain. H&P, and labs reviewed. Procedure explained, questions answered, consent obtained. Patient in sitting position with blood pressure cuff and pulse ox on and working. Timeout performed immediately before start of procedure. Sterile Duraprep prep/drape. 3 mL 1% lidocaine skin wheal at L[3]-L[4]. 17-gauge tuohy epidural needle advanced to [id number] with saline at 9 cm. 25-gauge spinal needle advanced until clear, free-flowing CSF. Intrathecal dexmedetomidine [5] mcg administered and needle removed. Epidural catheter advanced to 15 cm, negative aspiration for blood and csf, negative test dose 3 ml 1.5% lidocaine with epinephrine. Sterile sponge and tegaderm applied, followed by tape reinforcement. Patient tolerated procedure well.
[2021-09-23] MEDS: ePHEDrine SULFATE 50 MG/1 ML INJ IV PRN ×3 (06:48→07:00)
[2021-09-23] MEDS ORDERED: ePHEDrine SULFATE 50 MG/1 ML INJ IM ONE (07:03)
[2021-09-23] MEDS ORDERED: PHENYLEPHRINE 10 MG/1 ML INJ SDV IV PRN (07:04)
[2021-09-23] MEDS ORDERED: PHENYLEPHRINE/NS 1,000 MCG/10 ML SYRINGE (OR USE) IV ONE (07:07)
[2021-09-23] MEDS: PHENYLEPHRINE 10 MG/1 ML INJ SDV IV PRN ×6 (07:20→07:49)
[2021-09-23] MEDS ORDERED: HETASTARCH 6% 500 ML IV ONE (07:50)
[2021-09-23] MEDS: valACYclovir 500 MG TAB PO SCH (10:00)
[2021-09-23] MEDS: fentaNYL-BUPIV 2 MCG/ML-0.125% 200 MCG/100 ML BAG EPIDURAL SCH ×2 (11:09→18:36)
[2021-09-23] MEDS: LACTATED RINGERS 1,000 ML IV SCH (18:35)
[2021-09-24] MEDS: fentaNYL-BUPIV 2 MCG/ML-0.125% 200 MCG/100 ML BAG EPIDURAL SCH ×2 (02:00→09:23)
--- NOTE | 2021-09-24 07:41 | Progress Note ---
Assessment and Plan - Patient Problems (1) Advanced maternal age (AMA), 40 years or greater Current Visit: Yes Status: Acute Plan to address problem: will continue to monitor progress on Pitocin Patient counseled that we will likely proceed with a primary delivery today (2) Morbid obesity with BMI of 45.0-49.9, adult Current Visit: Yes Status: Acute (3) Pre-eclampsia added to pre-existing hypertension Current Visit: Yes Status: Acute Subjective - Subjective Date of service: 09/24/21 Principal diagnosis: Chronic HTN with superimposed preeclampsia, AMA, Morbid Obesity Interval history: Nursing staff has reported that the patient spontaneously ruptured yesterday. The patient is currently on clindamycin antibiotics. The patient has had minimal cervical change. Currently has cervical exam is 2 cm. The patient has been counseled to proceed with a primary delivery if she does not enter active phase of labor today. Patient reports: loss of fluid, movement normal, no new complaints, no vaginal bleeding Objective - Vital Signs Vital Signs: Vital Signs - 12hr 09/23/21 09/23/21 09/23/21 19:40 19:41 19:45 Temperature Pulse Rate 92 H 90 93 H Respiratory Rate Blood Pressure 160/81 Blood Pressure [Right] O2 Sat by Pulse 91 96 Oximetry 09/23/21 09/23/21 09/23/21 19:50 19:55 20:00 Temperature Pulse Rate 96 H 95 H 98 H Respiratory Rate Blood Pressure Blood Pressure [Right] O2 Sat by Pulse 96 96 96 Oximetry 09/23/21 09/23/21 09/23/21 20:05 20:10 20:15 Temperature Pulse Rate 98 H 94 H 100 H Respiratory Rate Blood Pressure 169/87 Blood Pressure [Right] O2 Sat by Pulse 96 95 94 Oximetry 09/23/21 09/23/21 09/23/21 20:20 20:25 20:30 Temperature Pulse Rate 94 H 100 H 95 H Respiratory Rate Blood Pressure Blood Pressure [Right] O2 Sat by Pulse 95 95 96 Oximetry 09/23/21 09/23/21 09/23/21 20:35 20:40 20:45 Temperature Pulse Rate 97 H 98 H 93 H Respiratory Rate Blood Pressure 169/86 Blood Pressure [Right] O2 Sat by Pulse 95 96 95 Oximetry 09/23/21 09/23/21 09/23/21 20:50 20:55 21:00 Temperature Pulse Rate 92 H 97 H 95 H Respiratory Rate Blood Pressure Blood Pressure [Right] O2 Sat by Pulse 95 95 95 Oximetry 09/23/21 09/23/21 09/23/21 21:05 21:06 21:10 Temperature Pulse Rate 86 83 86 Respiratory Rate Blood Pressure 160/91 Blood Pressure [Right] O2 Sat by Pulse 92 91 94 Oximetry 09/23/21 09/23/21 09/23/21 21:14 21:15 21:19 Temperature Pulse Rate 86 81 89 Respiratory Rate Blood Pressure Blood Pressure [Right] O2 Sat by Pulse 90 92 91 Oximetry 09/23/21 09/23/21 09/23/21 21:20 21:25 21:30 Temperature Pulse Rate 89 91 H 81 Respiratory Rate Blood Pressure Blood Pressure [Right] O2 Sat by Pulse 92 91 93 Oximetry 09/23/21 09/23/21 09/23/21 21:32 21:35 21:38 Temperature Pulse Rate 80 86 84 Respiratory Rate Blood Pressure Blood Pressure [Right] O2 Sat by Pulse 91 92 91 Oximetry 09/23/21 09/23/21 09/23/21 21:39 21:40 21:45 Temperature Pulse Rate 87 84 84 Respiratory Rate Blood Pressure 140/78 Blood Pressure [Right] O2 Sat by Pulse 93 91 Oximetry 09/23/21 09/23/21 09/23/21 21:50 21:55 21:57 Temperature Pulse Rate 85 85 76 Respiratory Rate Blood Pressure Blood Pressure [Right] O2 Sat by Pulse 92 92 91 Oximetry 09/23/21 09/23/21 09/23/21 22:00 22:05 22:08 Temperature Pulse Rate 81 87 81 Respiratory Rate Blood Pressure Blood Pressure [Right] O2 Sat by Pulse 93 92 91 Oximetry 09/23/21 09/23/21 09/23/21 22:09 22:10 22:15 Temperature Pulse Rate 88 80 92 H Respiratory Rate Blood Pressure 128/65 Blood Pressure [Right] O2 Sat by Pulse 93 95 Oximetry 09/23/21 09/23/21 09/23/21 22:20 22:25 22:30 Temperature Pulse Rate 91 H 87 87 Respiratory Rate Blood Pressure Blood Pressure [Right] O2 Sat by Pulse 95 95 95 Oximetry 09/23/21 09/23/21 09/23/21 22:35 22:40 22:45 Temperature Pulse Rate 88 89 89 Respiratory Rate Blood Pressure 137/74 Blood Pressure [Right] O2 Sat by Pulse 94 94 93 Oximetry 09/23/21 09/23/21 09/23/21 22:46 22:50 22:55 Temperature Pulse Rate 82 92 H 93 H Respiratory Rate Blood Pressure Blood Pressure [Right] O2 Sat by Pulse 91 92 93 Oximetry 09/23/21 09/23/21 09/23/21 23:00 23:03 23:05 Temperature 98.5 F Pulse Rate 84 83 86 Respiratory Rate Blood Pressure Blood Pressure [Right] O2 Sat by Pulse 94 91 92 Oximetry 09/23/21 09/23/21 09/23/21 23:09 23:10 23:11 Temperature Pulse Rate 88 85 82 Respiratory Rate Blood Pressure 140/71 Blood Pressure [Right] O2 Sat by Pulse 91 93 Oximetry 09/23/21 09/23/21 09/23/21 23:14 23:15 23:20 Temperature Pulse Rate 77 81 82 Respiratory Rate Blood Pressure Blood Pressure [Right] O2 Sat by Pulse 91 92 93 Oximetry 09/23/21 09/23/21 09/23/21 23:22 23:25 23:28 Temperature Pulse Rate 79 83 78 Respiratory Rate Blood Pressure Blood Pressure [Right] O2 Sat by Pulse 91 93 90 Oximetry 09/23/21 09/23/21 09/23/21 23:30 23:34 23:35 Temperature Pulse Rate 84 82 78 Respiratory Rate Blood Pressure Blood Pressure [Right] O2 Sat by Pulse 93 91 93 Oximetry 09/23/21 09/23/21 09/23/21 23:39 23:40 23:45 Temperature Pulse Rate 78 77 80 Respiratory Rate Blood Pressure 131/62 Blood Pressure [Right] O2 Sat by Pulse 91 94 93 Oximetry 09/23/21 09/23/21 09/23/21 23:48 23:50 23:53 Temperature Pulse Rate 75 81 70 Respiratory Rate Blood Pressure Blood Pressure [Right] O2 Sat by Pulse 91 93 91 Oximetry 09/23/21 09/24/21 09/24/21 23:55 00:00 00:05 Temperature Pulse Rate 80 76 83 Respiratory Rate Blood Pressure Blood Pressure [Right] O2 Sat by Pulse 90 91 94 Oximetry 09/24/21 09/24/21 09/24/21 00:07 00:09 00:10 Temperature Pulse Rate 78 82 88 Respiratory Rate Blood Pressure 117/68 Blood Pressure [Right] O2 Sat by Pulse 90 94 Oximetry 09/24/21 09/24/21 09/24/21 00:15 00:20 00:25 Temperature Pulse Rate 89 90 93 H Respiratory Rate Blood Pressure Blood Pressure [Right] O2 Sat by Pulse 93 95 96 Oximetry 09/24/21 09/24/21 09/24/21 00:30 00:35 00:40 Temperature Pulse Rate 86 87 83 Respiratory Rate Blood Pressure 131/74 Blood Pressure [Right] O2 Sat by Pulse 96 94 94 Oximetry 09/24/21 09/24/21 09/24/21 00:45 00:50 00:55 Temperature Pulse Rate 82 86 80 Respiratory Rate Blood Pressure Blood Pressure [Right] O2 Sat by Pulse 95 95 94 Oximetry 09/24/21 09/24/21 09/24/21 00:59 01:00 01:05 Temperature Pulse Rate 73 75 94 H Respiratory Rate Blood Pressure Blood Pressure [Right] O2 Sat by Pulse 91 93 95 Oximetry 09/24/21 09/24/21 09/24/21 01:09 01:10 01:15 Temperature Pulse Rate 82 76 90 Respiratory Rate Blood Pressure 133/69 Blood Pressure [Right] O2 Sat by Pulse 89 93 96 Oximetry 09/24/21 09/24/21 09/24/21 01:20 01:25 01:30 Temperature Pulse Rate 72 77 75 Respiratory Rate Blood Pressure Blood Pressure [Right] O2 Sat by Pulse 93 94 93 Oximetry 09/24/21 09/24/21 09/24/21 01:35 01:40 01:45 Temperature Pulse Rate 87 84 78 Respiratory Rate Blood Pressure Blood Pressure [Right] O2 Sat by Pulse 95 94 93 Oximetry 09/24/21 09/24/21 09/24/21 01:50 01:55 02:00 Temperature 98.5 F Pulse Rate 78 78 82 Respiratory 18 Rate Blood Pressure Blood Pressure 131/66 [Right] O2 Sat by Pulse 94 94 94 Oximetry 09/24/21 09/24/21 09/24/21 02:02 02:05 02:06 Temperature Pulse Rate 77 79 82 Respiratory Rate Blood Pressure 131/66 Blood Pressure [Right] O2 Sat by Pulse 91 94 Oximetry 09/24/21 09/24/21 09/24/21 02:10 02:15 02:20 Temperature Pulse Rate 79 79 73 Respiratory Rate Blood Pressure 130/67 Blood Pressure [Right] O2 Sat by Pulse 91 94 93 Oximetry 09/24/21 09/24/21 09/24/21 02:25 02:30 02:34 Temperature Pulse Rate 78 76 75 Respiratory Rate Blood Pressure Blood Pressure [Right] O2 Sat by Pulse 94 93 91 Oximetry 09/24/21 09/24/21 09/24/21 02:35 02:39 02:40 Temperature Pulse Rate 78 81 81 Respiratory Rate Blood Pressure 122/63 Blood Pressure [Right] O2 Sat by Pulse 93 94 Oximetry 09/24/21 09/24/21 09/24/21 02:41 02:45 02:50 Temperature Pulse Rate 79 80 84 Respiratory Rate Blood Pressure Blood Pressure [Right] O2 Sat by Pulse 89 93 87 Oximetry 09/24/21 09/24/21 09/24/21 02:55 02:59 03:00 Temperature Pulse Rate 85 82 88 Respiratory Rate Blood Pressure Blood Pressure [Right] O2 Sat by Pulse 90 90 93 Oximetry 09/24/21 09/24/21 09/24/21 03:05 03:06 03:09 Temperature Pulse Rate 89 88 86 Respiratory Rate Blood Pressure 123/66 Blood Pressure [Right] O2 Sat by Pulse 92 91 Oximetry 09/24/21 09/24/21 09/24/21 03:10 03:14 03:15 Temperature Pulse Rate 89 82 80 Respiratory Rate Blood Pressure Blood Pressure [Right] O2 Sat by Pulse 92 91 92 Oximetry 09/24/21 09/24/21 09/24/21 03:20 03:25 03:30 Temperature Pulse Rate 82 80 79 Respiratory Rate Blood Pressure Blood Pressure [Right] O2 Sat by Pulse 92 92 93 Oximetry 09/24/21 09/24/21 09/24/21 03:34 03:35 03:39 Temperature Pulse Rate 74 77 94 H Respiratory Rate Blood Pressure 115/58 Blood Pressure [Right] O2 Sat by Pulse 91 92 Oximetry 09/24/21 09/24/21 09/24/21 03:40 03:45 03:48 Temperature Pulse Rate 83 95 H 78 Respiratory Rate Blood Pressure Blood Pressure [Right] O2 Sat by Pulse 94 95 91 Oximetry 09/24/21 09/24/21 09/24/21 03:50 03:55 03:58 Temperature Pulse Rate 78 79 71 Respiratory Rate Blood Pressure Blood Pressure [Right] O2 Sat by Pulse 92 93 91 Oximetry 09/24/21 09/24/21 09/24/21 04:00 04:05 04:06 Temperature Pulse Rate 74 79 76 Respiratory Rate Blood Pressure Blood Pressure [Right] O2 Sat by Pulse 93 94 91 Oximetry 09/24/21 09/24/21 09/24/21 04:10 04:15 04:20 Temperature Pulse Rate 83 96 H 84 Respiratory Rate Blood Pressure 136/72 Blood Pressure [Right] O2 Sat by Pulse 94 94 95 Oximetry 09/24/21 09/24/21 09/24/21 04:25 04:30 04:35 Temperature Pulse Rate 83 92 H 81 Respiratory Rate Blood Pressure Blood Pressure [Right] O2 Sat by Pulse 94 95 94 Oximetry 09/24/21 09/24/21 09/24/21 04:40 04:45 04:50 Temperature Pulse Rate 80 81 84 Respiratory Rate Blood Pressure 151/75 Blood Pressure [Right] O2 Sat by Pulse 91 94 95 Oximetry 09/24/21 09/24/21 09/24/21 04:55 05:00 05:05 Temperature Pulse Rate 95 H 88 80 Respiratory Rate Blood Pressure Blood Pressure [Right] O2 Sat by Pulse 94 95 94 Oximetry 09/24/21 09/24/21 09/24/21 05:09 05:10 05:15 Temperature Pulse Rate 80 84 94 H Respiratory Rate Blood Pressure 142/80 Blood Pressure [Right] O2 Sat by Pulse 91 93 95 Oximetry 09/24/21 09/24/21 09/24/21 05:20 05:25 05:30 Temperature Pulse Rate 81 91 H 94 H Respiratory Rate Blood Pressure Blood Pressure [Right] O2 Sat by Pulse 94 95 94 Oximetry 09/24/21 09/24/21 09/24/21 05:35 05:40 05:45 Temperature Pulse Rate 79 89 88 Respiratory Rate Blood Pressure 168/89 Blood Pressure [Right] O2 Sat by Pulse 95 94 93 Oximetry 09/24/21 09/24/21 09/24/21 05:50 05:55 06:00 Temperature Pulse Rate 83 98 H 85 Respiratory Rate Blood Pressure Blood Pressure [Right] O2 Sat by Pulse 94 94 96 Oximetry 09/24/21 09/24/21 09/24/21 06:05 06:10 06:11 Temperature Pulse Rate 86 82 81 Respiratory Rate Blood Pressure 181/92 Blood Pressure [Right] O2 Sat by Pulse 94 92 Oximetry 09/24/21 09/24/21 09/24/21 06:15 06:20 06:25 Temperature Pulse Rate 84 83 87 Respiratory Rate Blood Pressure Blood Pressure [Right] O2 Sat by Pulse 95 94 95 Oximetry 09/24/21 09/24/21 09/24/21 06:30 06:35 06:36 Temperature Pulse Rate 89 90 83 Respiratory Rate Blood Pressure 155/88 Blood Pressure [Right] O2 Sat by Pulse 95 94 Oximetry 09/24/21 09/24/21 09/24/21 06:39 06:40 06:41 Temperature 98.2 F Pulse Rate 82 79 Respiratory Rate Blood Pressure 165/89 Blood Pressure [Right] O2 Sat by Pulse 93 Oximetry 09/24/21 09/24/21 09/24/21 06:45 06:50 06:55 Temperature Pulse Rate 76 84 82 Respiratory Rate Blood Pressure Blood Pressure [Right] O2 Sat by Pulse 94 95 92 Oximetry 09/24/21 09/24/21 09/24/21 06:57 07:00 07:05 Temperature Pulse Rate 102 H 84 76 Respiratory Rate Blood Pressure Blood Pressure [Right] O2 Sat by Pulse 91 94 95 Oximetry 09/24/21 09/24/21 09/24/21 07:10 07:15 07:20 Temperature Pulse Rate 83 91 H 77 Respiratory Rate Blood Pressure Blood Pressure [Right] O2 Sat by Pulse 96 95 96 Oximetry 09/24/21 09/24/21 09/24/21 07:23 07:25 07:30 Temperature Pulse Rate 82 84 92 H Respiratory Rate Blood Pressure 146/73 Blood Pressure [Right] O2 Sat by Pulse 94 94 Oximetry 09/24/21 07:35 Temperature Pulse Rate 89 Respiratory Rate Blood Pressure Blood Pressure [Right] O2 Sat by Pulse 95 Oximetry - Labs Labs: Abnormal Labs 09/20/21 09/21/21 09/21/21 Unknown 00:37 07:33 MCV 69 L MCH 23 L RDW 17.8 H Magnesium 4.00 H 5.10 H 09/21/21 09/21/21 09/22/21 13:39 22:05 04:02 MCV MCH RDW Magnesium 5.50 H 5.50 H 5.50 H 09/22/21 09/22/21 09/22/21 09:58 16:10 22:09 MCV MCH RDW Magnesium 5.30 H 6.20 H 6.20 H 09/23/21 09/23/21 09/23/21 03:56 10:32 19:03 MCV MCH RDW Magnesium 5.70 H 6.00 H 5.90 H 09/24/21 00:11 MCV MCH RDW Magnesium 6.10 H Laboratory Results - last 24 hr 09/23/21 09/23/21 09/23/21 10:32 10:33 19:03 Magnesium 6.00 H 5.90 H Blood Type B POSITIVE Antibody Screen Negative 09/24/21 00:11 Magnesium 6.10 H Blood Type Antibody Screen
[2021-09-24] MEDS: OXYTOCIN DRIP 30 UNITS/500 ML BAG IV SCH (07:49)
[2021-09-24] MEDS: hydrALAZINE 20 MG/1 ML INJ IV PRN ×2 (08:09→08:10)
[2021-09-24] MEDS: ALBUTEROL 2.5 MG/3 ML NEBU IH PRN (08:53)
[2021-09-24] MEDS: valACYclovir 500 MG TAB PO SCH (09:22)
[2021-09-24] MEDS: LACTATED RINGERS 1,000 ML IV SCH (12:43)
[2021-09-24] MEDS ORDERED: METOCLOPRAMIDE 10 MG/2 ML INJ IV SCH (16:36)
[2021-09-24] MEDS ORDERED: BICITRA ORAL LIQD 30ML PO SCH (16:36)
[2021-09-24] MEDS ORDERED: GENTAMICIN 100 MG in SODIUM CHLORIDE 0.9% 100 ML IV ONE (16:36)
[2021-09-24] MEDS ORDERED: FAMOTIDINE 20 MG/2 ML INJ IV SCH (16:36)
--- NOTE | 2021-09-24 16:41 | Anesthesia Day of Surgery ---
Anesthesia Day of Surgery - Day of Surgery Patient Examined: Yes Patient H&P Reviewed: Yes Patient is NPO: Yes Beta Blockers: No Cardiac Clearance: No Pulmonary Clearance: No Buzz's Test: N/A
[2021-09-24] MEDS ORDERED: GENTAMICIN/NS 80 MG/100 ML 100 ML IV SCH (17:00)
[2021-09-24] MEDS ORDERED: LACTATED RINGERS 1,000 ML IV SCH (17:00)
[2021-09-24] MEDS ORDERED: GENTAMICIN/NS 100 MG/100 ML 100 MG/100 ML BAG IV SCH (17:00)
[2021-09-24] MEDS ORDERED: GENTAMICIN 400 MG in SODIUM CHLORIDE 0.9% 100 ML IV SCH (17:00)
[2021-09-24] MEDS ORDERED: ONDANSETRON 4 MG/2 ML INJ ONE (17:11)
[2021-09-24] MEDS ORDERED: KETOROLAC 30 MG/1 ML INJ ONE (17:11)
[2021-09-24] MEDS ORDERED: LIDOCAINE 2%/EPINEPHRINE 1:200,000 VIAL (20 ML) INFILTRATI ONE (17:11)
[2021-09-24] MEDS ORDERED: WATER FOR IRRIG STERILE 1,500 ML BOTTLE IR ONE (17:31)
[2021-09-24] MEDS ORDERED: SODIUM CHLORIDE 0.9% IRR 1,500 ML BOTTLE IR ONE (17:31)
[2021-09-24] MEDS ORDERED: WITCH HAZEL/ GLYCERIN PAD TP PRN (17:51)
[2021-09-24] MEDS ORDERED: MORPHINE 4 MG/1 ML INJ IV PRN (17:51)
[2021-09-24] MEDS ORDERED: LANOLIN/ZINC/DIMETHICONE (LANSINOH) 7 GM TP PRN (17:51)
[2021-09-24] MEDS ORDERED: NALOXONE 0.4 MG/1 ML INJ IV PRN ×2 (17:51→19:02)
[2021-09-24] MEDS ORDERED: MAGNESIUM HYDROXIDE (MOM) ORAL LIQD UDC PO PRN (17:51)
--- NOTE | 2021-09-24 17:53 | Procedure Note ---
OB Delivery Note - Delivery Date of Delivery: 09/24/21 Surgeon: ELSIE PECK - Section Preop diagnosis: arrest of dilation Postop diagnosis: same section procedure: section, primary low transverse Disposition: PACU Complications: none - A at 1 minute: 8 at 5 minutes: 9 Infant Gender: Male (6 pounds 4 ounces)
--- NOTE | 2021-09-24 17:54 | Operative Report ---
Operative Report Operative Report: Date of surgery: September 24, 2021 Preoperative diagnosis: at 38+5 weeks; preeclampsia; failed induction; morbid obesity Postoperative diagnosis: Same as above Procedure: Primary low transverse delivery Surgeon: Stefanie Becker M.D. Anesthesia: Regional Estimated blood loss: Default value Findings: Liveborn male infant with Apgars of 8 and 9 weight 6 pounds 4 ounces Indications: 40-year-old -0-1-0 at 38+5 weeks who was admitted for induction of labor secondary to preeclampsia. Her intrapartum course is complicated by failed induction and arrest of dilatation at 2 cm. Procedure: The patient was taken to the operating room and given regional anesthesia without complication. She was prepped and draped in a normal sterile fashion. A Pfannenstiel skin incision was made down to layer the fascia which was nicked in the midline extended laterally with the Bovie cautery. The superior aspect of the rectus fascia was grasped with Caio clamps x2 and the rectus muscles off sharply. This was done in inferior fashion as well. The rectus muscle midline and peritoneum entered bluntly. An Sang retractor was then inserted. A bladder blade was placed. The vesicouterine peritoneum was then entered sharply with Metzenbaum scissors. A bladder flap was created digitally. A low transverse uterine incision was then made and extended digitally. There was clear fluid upon entry into the uterine cavity. The head was delivered through the incision with fundal pressure. The cord was clamped and cut x2 and infant was passed off to pediatrics. The placenta was then manually extracted. The uterus was then exteriorized and cleared of clots and debris. The uterine incision was then closed in a running locked fashion with 0 Vicryl additional imbricating stitch was applied for 2 layer closure. The posterior c ul-de-sac was then copiously irrigated. The uterus was replaced back into the abdomen and pelvis were the gutters were then irrigated. The Sang retractor was then removed. The peritoneum was then reapproximated with 3-0 Vicryl incorporating the rectus muscle. The fascia was then closed with 0 Vicryl in a running fashion. The skin was then reapproximated with 3-0 Monocryl on a Arian needle subcuticular fashion. Steri-Strips to place across the incision and a Crede procedures performed at the end of the surgery. A pressure dressing was applied to the incision. The surgery productive of a liveborn male infant with Apgars of 8 and 9 weight 6 pounds 4 ounces. The patient was taken to the recovery room in stable condition. All sponge laps and needle counts correct x2.
[2021-09-24] MEDS ORDERED: OXYTOCIN DRIP 30 UNITS/500 ML BAG IV SCH (18:00)
[2021-09-24] MEDS ORDERED: MORPHINE PF 10MG/10 ML AMPULE ONE (18:03)
[2021-09-24] MEDS ORDERED: NalbUPHINE 10 MG/1 ML INJ IV PRN (19:02)
[2021-09-24] MEDS ORDERED: ONDANSETRON 4 MG/2 ML INJ IV PRN (19:02)
[2021-09-24] MEDS ORDERED: PROMETHAZINE 25 MG RECT SUPP PR PRN (19:02)
[2021-09-24] MEDS ORDERED: PROMETHAZINE 25 MG TAB PO PRN (19:02)
[2021-09-24] MEDS: KETOROLAC 30 MG/1 ML INJ IV PRN (21:33)
[2021-09-25] MEDS: diphenhydrAMINE 50 MG/ML VIAL IV PRN (03:42)
[2021-09-25 06:17] LABS: Hematocrit 27.7 % (30.3-42.9); Hemoglobin 9.2 gm/dl (10.1-14.3)
[2021-09-25] MEDS: ALBUTEROL 2.5 MG/3 ML NEBU IH PRN ×2 (08:12→20:30)
--- NOTE | 2021-09-25 08:28 | Post Anesthesia Evaluation ---
- Post Anesthesia Evaluation Patient Participated: Yes Airway Patent: Yes Stable Respiratory Function: Yes Nausea/Vomiting: No Temp > 96.8F: Yes Pain Manageable: Yes Adequeate Hydration: Yes Anesthesia Complications: No Block Receding Appropriately: Yes Patient on Ventilator: No
[2021-09-25] MEDS: KETOROLAC 30 MG/1 ML INJ IV PRN ×2 (09:19→21:53)
[2021-09-25] MEDS: valACYclovir 500 MG TAB PO SCH (09:24)
--- NOTE | 2021-09-25 10:38 | Progress Note ---
Assessment and Plan A: POD#1 s/p R. C/S at 36wks ArielRoxanaGarret EDWIN rachele. superimposed Pre-eclampsia, currently normotensive Oliguria P: Continue with routine care and labetalol therapy Hold Mag Sulfate and closely monitor urine output Subjective - Subjective Date of service: 09/25/21 Principal diagnosis: Chronic HTN with superimposed preeclampsia, AMA, Morbid Obesity Interval history: POD#1 s/p R. C/S at 36wks. Patient is feeling but eager to room-in with her . She reports decreasing lochia, adequate pain control and denies flatus at this time. Patient reports: pain well controlled, no voiding normally (Oliguria), no flatus Austin: doing well Objective - Vital Signs Latest vital signs: Vital Signs Temp Pulse Pulse Resp Resp BP BP 09/25/21 10:28 80 09/25/21 10:23 83 09/25/21 10:19 87 09/25/21 10:18 95 H 09/25/21 10:13 85 09/25/21 10:08 87 09/25/21 10:03 84 09/25/21 09:58 86 09/25/21 09:53 86 09/25/21 09:50 86 110/63 09/25/21 09:48 91 H 09/25/21 09:43 91 H 09/25/21 09:38 93 H 09/25/21 09:33 93 H 09/25/21 09:32 94 H 09/25/21 09:28 101 H 09/25/21 09:26 103 H 09/25/21 09:24 101 H 111/63 09/25/21 09:23 103 H 09/25/21 09:18 93 H 09/25/21 09:13 96 H 09/25/21 09:08 99 H 09/25/21 09:03 96 H 09/25/21 09:01 74 09/25/21 09:00 09/25/21 08:58 99 H 09/25/21 08:53 102 H 09/25/21 08:50 98.2 F 108 H 18 111/63 111/63 09/25/21 08:48 96 H 09/25/21 08:43 109 H 09/25/21 08:38 101 H 09/25/21 08:33 102 H 09/25/21 08:29 103 H 09/25/21 08:28 104 H 09/25/21 08:23 103 H 09/25/21 08:18 105 H 09/25/21 08:17 110 H 09/25/21 08:13 101 H 09/25/21 08:12 112 H 22 09/25/21 08:10 106 H 09/25/21 08:08 103 H 09/25/21 08:03 100 H 09/25/21 08:00 108 H 09/25/21 07:58 96 H 09/25/21 07:53 97 H 09/25/21 07:50 97 H 121/57 09/25/21 07:48 99 H 09/25/21 07:43 108 H 09/25/21 07:38 102 H 09/25/21 07:33 100 H 09/25/21 07:28 98 H 09/25/21 07:27 101 H 09/25/21 07:23 94 H 09/25/21 07:18 89 09/25/21 07:13 90 09/25/21 07:08 94 H 09/25/21 07:03 89 09/25/21 06:58 93 H 09/25/21 06:55 100 H 09/25/21 06:53 89 09/25/21 06:50 90 115/54 09/25/21 06:48 89 09/25/21 06:43 87 09/25/21 06:38 89 09/25/21 06:33 85 09/25/21 06:28 86 09/25/21 06:23 86 09/25/21 06:18 88 09/25/21 06:13 87 09/25/21 06:08 96 H 09/25/21 06:05 90 09/25/21 06:03 86 09/25/21 05:59 86 09/25/21 05:58 87 09/25/21 05:53 83 09/25/21 05:50 85 138/58 09/25/21 05:48 88 09/25/21 05:43 86 09/25/21 05:41 95 H 09/25/21 05:38 108 H 09/25/21 05:36 92 H 09/25/21 05:33 102 H 09/25/21 05:28 85 09/25/21 05:23 85 09/25/21 05:18 87 09/25/21 05:13 84 09/25/21 05:08 83 09/25/21 05:03 84 09/25/21 04:58 82 09/25/21 04:53 83 09/25/21 04:50 84 116/72 09/25/21 04:48 83 09/25/21 04:43 84 09/25/21 04:38 84 09/25/21 04:33 84 09/25/21 04:28 84 09/25/21 04:23 84 09/25/21 04:18 85 09/25/21 04:13 85 09/25/21 04:08 85 09/25/21 04:03 89 09/25/21 03:58 86 09/25/21 03:53 91 H 09/25/21 03:48 91 H 09/25/21 03:43 85 09/25/21 03:38 89 09/25/21 03:33 86 09/25/21 03:30 88 09/25/21 03:28 91 H 09/25/21 03:23 87 09/25/21 03:18 86 09/25/21 03:13 89 09/25/21 03:08 90 09/25/21 03:03 80 09/25/21 02:58 86 09/25/21 02:53 87 09/25/21 02:50 89 111/52 09/25/21 02:48 85 09/25/21 02:43 89 09/25/21 02:38 88 09/25/21 02:33 92 H 09/25/21 02:28 89 09/25/21 02:23 89 09/25/21 02:18 92 H 09/25/21 02:13 82 09/25/21 02:08 82 09/25/21 02:03 87 09/25/21 01:58 82 09/25/21 01:53 83 09/25/21 01:50 83 104/56 09/25/21 01:48 90 09/25/21 01:43 83 09/25/21 01:38 83 09/25/21 01:33 83 09/25/21 01:28 85 09/25/21 01:23 89 09/25/21 01:18 91 H 09/25/21 01:13 90 02/22/22 01:08 80 09/25/21 01:03 84 09/25/21 00:58 86 09/25/21 00:53 85 09/25/21 00:50 86 108/64 09/25/21 00:48 93 H 09/25/21 00:43 85 09/25/21 00:38 87 09/25/21 00:33 87 09/25/21 00:28 85 09/25/21 00:23 88 09/25/21 00:18 95 H 09/25/21 00:13 90 09/25/21 00:10 88 09/25/21 00:08 83 09/25/21 00:03 81 09/24/21 23:58 93 H 09/24/21 23:53 88 09/24/21 23:50 89 114/68 09/24/21 23:48 93 H 09/24/21 23:43 87 09/24/21 23:42 98.8 F 09/24/21 23:38 90 09/24/21 23:33 94 H 09/24/21 23:28 96 H 09/24/21 23:23 98 H 09/24/21 23:19 97 H 117/63 09/24/21 23:18 101 H 09/24/21 23:13 103 H 09/24/21 23:08 97 H 09/24/21 23:03 101 H 09/24/21 22:58 100 H 09/24/21 22:57 95 H 09/24/21 22:53 99 H 09/24/21 22:48 98 H 09/24/21 22:43 101 H 09/24/21 22:38 97 H 09/24/21 22:33 104 H 09/24/21 22:28 98 H 09/24/21 22:23 103 H 09/24/21 22:18 111 H 09/24/21 22:13 101 H 09/24/21 22:08 96 H 09/24/21 22:04 09/24/21 22:03 113 H 09/24/21 21:58 104 H 09/24/21 21:53 99 F 101 H 09/24/21 21:50 103 H 128/73 09/24/21 21:48 102 H 09/24/21 21:43 107 H 09/24/21 21:38 104 H 09/24/21 21:33 103 H 137/74 09/24/21 21:31 104 H 137/74 09/24/21 21:28 103 H 09/24/21 21:23 98 H 09/24/21 21:18 98 H 09/24/21 21:13 98 H 09/24/21 21:08 100 H 09/24/21 21:03 106 H 09/24/21 20:58 104 H 09/24/21 20:53 98 H 09/24/21 20:48 100 H 09/24/21 20:43 98 H 140/79 09/24/21 20:08 97.7 F 09/24/21 20:06 99 H 21 124/79 09/24/21 19:46 97 H 18 119/72 09/24/21 19:30 95 H 18 111/63 09/24/21 19:15 101 H 12 99/45 09/24/21 19:11 105 H 13 106/51 09/24/21 19:05 94 H 19 93/51 09/24/21 19:00 92 H 19 98/53 09/24/21 17:30 87 09/24/21 17:29 91 H 09/24/21 17:25 83 09/24/21 17:20 83 09/24/21 17:18 93 H 09/24/21 17:15 85 09/24/21 17:10 87 09/24/21 17:05 89 09/24/21 17:00 87 09/24/21 16:55 86 09/24/21 16:53 80 161/77 09/24/21 16:50 84 09/24/21 16:45 86 09/24/21 16:41 81 154/70 09/24/21 16:40 84 09/24/21 16:35 84 09/24/21 16:30 89 09/24/21 16:25 87 09/24/21 16:24 88 168/89 09/24/21 16:20 88 09/24/21 16:15 80 09/24/21 16:10 84 179/83 09/24/21 16:05 89 09/24/21 16:00 79 09/24/21 15:55 86 159/79 09/24/21 15:50 80 09/24/21 15:45 85 09/24/21 15:40 83 09/24/21 15:38 83 143/72 09/24/21 15:35 87 09/24/21 15:30 88 09/24/21 15:25 83 09/24/21 15:23 87 143/81 09/24/21 15:20 78 09/24/21 15:15 85 09/24/21 15:10 83 09/24/21 15:08 88 135/80 09/24/21 15:07 83 09/24/21 15:05 93 H 09/24/21 15:00 85 09/24/21 14:55 89 190/88 09/24/21 14:50 85 09/24/21 14:45 84 09/24/21 14:40 91 H 09/24/21 14:39 83 174/89 09/24/21 14:35 86 09/24/21 14:30 89 09/24/21 14:25 87 09/24/21 14:23 84 128/69 09/24/21 14:20 86 09/24/21 14:15 81 09/24/21 14:10 91 H 09/24/21 14:09 83 132/72 09/24/21 14:05 86 09/24/21 14:00 77 09/24/21 13:55 90 09/24/21 13:53 83 135/68 09/24/21 13:50 88 09/24/21 13:45 87 09/24/21 13:40 87 09/24/21 13:38 86 129/67 09/24/21 13:35 87 09/24/21 13:30 86 09/24/21 13:25 77 09/24/21 13:24 75 135/68 09/24/21 13:22 77 09/24/21 13:20 80 09/24/21 13:15 79 09/24/21 13:10 75 09/24/21 13:08 85 141/62 09/24/21 13:05 83 09/24/21 13:04 79 09/24/21 13:00 84 09/24/21 12:55 81 09/24/21 12:53 84 136/66 09/24/21 12:50 85 09/24/21 12:45 84 09/24/21 12:40 87 09/24/21 12:38 85 138/66 09/24/21 12:35 87 09/24/21 12:32 91 H 09/24/21 12:30 89 09/24/21 12:25 90 131/64 09/24/21 12:20 89 09/24/21 12:15 89 09/24/21 12:10 90 09/24/21 12:08 90 121/58 09/24/21 12:05 84 09/24/21 12:00 59 L 09/24/21 11:55 71 09/24/21 11:54 80 117/59 09/24/21 11:50 75 09/24/21 11:47 89 09/24/21 11:45 83 09/24/21 11:40 80 09/24/21 11:38 81 116/52 09/24/21 11:35 80 09/24/21 11:30 78 09/24/21 11:25 83 09/24/21 11:23 85 122/62 09/24/21 11:20 78 09/24/21 11:15 80 09/24/21 11:14 87 09/24/21 11:10 81 09/24/21 11:09 87 123/56 09/24/21 11:08 87 09/24/21 11:05 90 09/24/21 11:00 91 H 09/24/21 10:55 93 H 09/24/21 10:53 76 09/24/21 10:50 79 09/24/21 10:45 80 09/24/21 10:41 84 09/24/21 10:40 89 09/24/21 10:35 68 09/24/21 10:34 77 Pulse Ox Pulse Ox 09/25/21 10:28 92 09/25/21 10:23 91 09/25/21 10:19 89 09/25/21 10:18 90 09/25/21 10:13 90 09/25/21 10:08 91 09/25/21 10:03 91 09/25/21 09:58 93 09/25/21 09:53 93 09/25/21 09:50 09/25/21 09:48 90 09/25/21 09:43 95 09/25/21 09:38 97 09/25/21 09:33 95 09/25/21 09:32 88 09/25/21 09:28 94 09/25/21 09:26 88 09/25/21 09:24 09/25/21 09:23 95 09/25/21 09:18 94 09/25/21 09:13 96 09/25/21 09:08 95 09/25/21 09:03 95 09/25/21 09:01 0 L 09/25/21 09:00 95 09/25/21 08:58 91 09/25/21 08:53 94 09/25/21 08:50 95 09/25/21 08:48 94 09/25/21 08:43 96 09/25/21 08:38 94 09/25/21 08:33 98 09/25/21 08:29 88 09/25/21 08:28 92 09/25/21 08:23 77 L 09/25/21 08:18 95 09/25/21 08:17 61 L 09/25/21 08:13 94 09/25/21 08:12 09/25/21 08:10 85 09/25/21 08:08 93 09/25/21 08:03 94 09/25/21 08:00 68 L 09/25/21 07:58 96 09/25/21 07:53 97 09/25/21 07:50 09/25/21 07:48 97 09/25/21 07:43 68 L 09/25/21 07:38 96 09/25/21 07:33 98 09/25/21 07:28 93 09/25/21 07:27 89 09/25/21 07:23 96 09/25/21 07:18 95 09/25/21 07:13 97 09/25/21 07:08 96 09/25/21 07:03 97 09/25/21 06:58 95 09/25/21 06:55 77 L 09/25/21 06:53 97 09/25/21 06:50 83 L 09/25/21 06:48 95 09/25/21 06:43 96 09/25/21 06:38 95 09/25/21 06:33 95 09/25/21 06:28 95 09/25/21 06:23 95 09/25/21 06:18 95 09/25/21 06:13 93 09/25/21 06:08 95 09/25/21 06:05 80 L 09/25/21 06:03 94 09/25/21 05:59 88 09/25/21 05:58 91 09/25/21 05:53 93 09/25/21 05:50 09/25/21 05:48 93 09/25/21 05:43 91 09/25/21 05:41 88 09/25/21 05:38 88 09/25/21 05:36 89 09/25/21 05:33 93 09/25/21 05:28 95 09/25/21 05:23 95 09/25/21 05:18 95 09/25/21 05:13 95 09/25/21 05:08 95 09/25/21 05:03 95 09/25/21 04:58 94 09/25/21 04:53 95 09/25/21 04:50 84 09/25/21 04:48 94 09/25/21 04:43 96 09/25/21 04:38 95 09/25/21 04:33 93 09/25/21 04:28 94 09/25/21 04:23 93 09/25/21 04:18 93 09/25/21 04:13 94 09/25/21 04:08 95 09/25/21 04:03 95 09/25/21 03:58 93 09/25/21 03:53 94 09/25/21 03:48 93 09/25/21 03:43 96 09/25/21 03:38 91 09/25/21 03:33 92 09/25/21 03:30 89 09/25/21 03:28 93 09/25/21 03:23 94 09/25/21 03:18 96 09/25/21 03:13 95 09/25/21 03:08 96 09/25/21 03:03 96 09/25/21 02:58 96 09/25/21 02:53 95 09/25/21 02:50 09/25/21 02:48 95 09/25/21 02:43 97 09/25/21 02:38 97 09/25/21 02:33 95 09/25/21 02:28 90 09/25/21 02:23 95 09/25/21 02:18 95 09/25/21 02:13 93 09/25/21 02:08 92 09/25/21 02:03 94 09/25/21 01:58 92 09/25/21 01:53 92 09/25/21 01:50 09/25/21 01:48 92 09/25/21 01:43 91 09/25/21 01:38 91 09/25/21 01:33 91 09/25/21 01:28 93 09/25/21 01:23 94 09/25/21 01:18 91 09/25/21 01:13 91 09/25/21 01:08 91 09/25/21 01:03 92 09/25/21 00:58 93 09/25/21 00:53 91 09/25/21 00:50 09/25/21 00:48 93 09/25/21 00:43 92 09/25/21 00:38 93 09/25/21 00:33 93 09/25/21 00:28 94 09/25/21 00:23 93 09/25/21 00:18 81 L 09/25/21 00:13 84 09/25/21 00:10 88 09/25/21 00:08 91 09/25/21 00:03 92 09/24/21 23:58 91 09/24/21 23:53 91 09/24/21 23:50 09/24/21 23:48 93 09/24/21 23:43 92 09/24/21 23:42 09/24/21 23:38 92 09/24/21 23:33 92 09/24/21 23:28 94 09/24/21 23:23 95 09/24/21 23:19 09/24/21 23:18 94 09/24/21 23:13 92 09/24/21 23:08 92 09/24/21 23:03 91 09/24/21 22:58 92 09/24/21 22:57 89 09/24/21 22:53 93 09/24/21 22:48 93 09/24/21 22:43 93 09/24/21 22:38 90 09/24/21 22:33 90 09/24/21 22:28 94 09/24/21 22:23 94 09/24/21 22:18 95 09/24/21 22:13 92 09/24/21 22:08 94 09/24/21 22:04 94 09/24/21 22:03 94 09/24/21 21:58 93 09/24/21 21:53 94 09/24/21 21:50 09/24/21 21:48 94 09/24/21 21:43 94 09/24/21 21:38 93 09/24/21 21:33 95 09/24/21 21:31 09/24/21 21:28 94 09/24/21 21:23 94 09/24/21 21:18 94 09/24/21 21:13 94 09/24/21 21:08 95 09/24/21 21:03 94 09/24/21 20:58 93 09/24/21 20:53 94 09/24/21 20:48 93 09/24/21 20:43 91 09/24/21 20:08 09/24/21 20:06 95 09/24/21 19:46 94 09/24/21 19:30 95 09/24/21 19:15 95 09/24/21 19:11 93 09/24/21 19:05 92 09/24/21 19:00 93 09/24/21 17:30 92 09/24/21 17:29 91 09/24/21 17:25 94 09/24/21 17:20 94 09/24/21 17:18 91 09/24/21 17:15 95 09/24/21 17:10 95 09/24/21 17:05 96 09/24/21 17:00 96 09/24/21 16:55 95 09/24/21 16:53 09/24/21 16:50 96 09/24/21 16:45 94 09/24/21 16:41 09/24/21 16:40 95 09/24/21 16:35 95 09/24/21 16:30 95 09/24/21 16:25 95 09/24/21 16:24 09/24/21 16:20 95 09/24/21 16:15 95 09/24/21 16:10 95 09/24/21 16:05 95 09/24/21 16:00 94 09/24/21 15:55 96 09/24/21 15:50 94 09/24/21 15:45 96 09/24/21 15:40 95 09/24/21 15:38 09/24/21 15:35 96 09/24/21 15:30 96 09/24/21 15:25 95 09/24/21 15:23 09/24/21 15:20 96 09/24/21 15:15 96 09/24/21 15:10 95 09/24/21 15:08 09/24/21 15:07 91 09/24/21 15:05 94 09/24/21 15:00 94 09/24/21 14:55 95 09/24/21 14:50 95 09/24/21 14:45 95 09/24/21 14:40 95 09/24/21 14:39 09/24/21 14:35 95 09/24/21 14:30 95 09/24/21 14:25 95 09/24/21 14:23 09/24/21 14:20 94 09/24/21 14:15 94 09/24/21 14:10 94 09/24/21 14:09 09/24/21 14:05 95 09/24/21 14:00 94 09/24/21 13:55 94 09/24/21 13:53 09/24/21 13:50 94 09/24/21 13:45 93 09/24/21 13:40 94 09/24/21 13:38 09/24/21 13:35 93 09/24/21 13:30 94 09/24/21 13:25 93 09/24/21 13:24 09/24/21 13:22 91 09/24/21 13:20 92 09/24/21 13:15 92 09/24/21 13:10 91 09/24/21 13:08 09/24/21 13:05 91 09/24/21 13:04 91 09/24/21 13:00 95 09/24/21 12:55 94 09/24/21 12:53 09/24/21 12:50 94 09/24/21 12:45 94 09/24/21 12:40 92 09/24/21 12:38 09/24/21 12:35 92 09/24/21 12:32 91 09/24/21 12:30 93 09/24/21 12:25 92 09/24/21 12:20 94 09/24/21 12:15 94 09/24/21 12:10 93 09/24/21 12:08 09/24/21 12:05 90 09/24/21 12:00 84 09/24/21 11:55 90 09/24/21 11:54 09/24/21 11:50 91 09/24/21 11:47 91 09/24/21 11:45 92 09/24/21 11:40 92 09/24/21 11:38 09/24/21 11:35 91 09/24/21 11:30 92 09/24/21 11:25 90 09/24/21 11:23 91 09/24/21 11:20 90 09/24/21 11:15 90 09/24/21 11:14 91 09/24/21 11:10 92 09/24/21 11:09 09/24/21 11:08 91 09/24/21 11:05 92 09/24/21 11:00 91 09/24/21 10:55 92 09/24/21 10:53 90 09/24/21 10:50 93 09/24/21 10:45 92 09/24/21 10:41 91 09/24/21 10:40 91 09/24/21 10:35 89 09/24/21 10:34 91 Intake and Output 09/24/21 09/25/21 09/25/21 23:59 07:59 15:59 Intake Total 1026.833 Output Total 225 175 200 Balance 801.833 -175 -200 Intake: IV 1026.833 PITOCin/NS 30 UNIT/500ML 26.833 30 units In 500 ml @ 2 mls/hr IV TITR LINA Rx#: [id number] Output: Urine 225 175 200 Indwelling Catheter 75 175 100 Uretheral (Bennett) 100 Other: Total, Output Amount 75 75 100 # Voids Indwelling Catheter 1 1 1 - Labs Labs: Abnormal lab results 09/24/21 09/24/21 09/25/21 Range/Units 12:18 23:26 03:47 Hgb (10.1-14.3) gm/dl Hct (30.3-42.9) % Magnesium 6.30 H 6.40 H 7.10 H (1.7-2.3) mg/dL 09/25/21 Range/Units 06:07 Hgb 9.2 L (10.1-14.3) gm/dl Hct 27.7 L (30.3-42.9) % Magnesium (1.7-2.3) mg/dL
[2021-09-25] MEDS ORDERED: ePHEDrine SULFATE 50 MG/1 ML INJ ONE (11:00)
--- NOTE | 2021-09-25 12:23 | XRay Report ---
CHEST 1 VIEW INDICATION / CLINICAL INFORMATION: SOB, decreased SPO2. COMPARISON: 08/15/2013 FINDINGS: SUPPORT DEVICES: None. HEART / MEDIASTINUM: Enlarged LUNGS / PLEURA: Bibasilar atelectasis. No focal consolidation. No pneumothorax. ADDITIONAL FINDINGS: No significant additional findings. IMPRESSION: Bibasilar atelectasis. Signer Name: Jose Brunner MD Signed: 09/25/2021 12:18 PM Workstation Name: [id number]
[2021-09-25] MEDS ORDERED: FUROSEMIDE 20 MG/2 ML INJ IV ONE (14:50)
--- NOTE | 2021-09-25 18:00 | Progress Note ---
Assessment and Plan - Patient Problems (1) Advanced maternal age (AMA), 40 years or greater Current Visit: Yes Status: Acute Plan to address problem: Advance diet as tolerated Discontinue Bennett in the a.m. Transfer to mother-baby unit tomorrow if patient is able to maintain oxygenation (2) Morbid obesity with BMI of 45.0-49.9, adult Current Visit: Yes Status: Acute (3) Pre-eclampsia added to pre-existing hypertension Current Visit: Yes Status: Acute Subjective - Subjective Date of service: 09/25/21 Principal diagnosis: Chronic HTN with superimposed preeclampsia, AMA, Morbid Obesity Interval history: Had an extensive discussion with patient. She is reporting that she feels neglected. The patient currently does not have a support system and the father of the baby is not involved. Attempted to reassure the patient that our staff is not neglecting her. Nursing staff has been overly accomodating to patient. Patient is receiving oxygen via nasal cannula. Discussed the importance the inc entive spirometer use. Chest x-ray just consistent with basilar atelectasis. The patient has remained afebrile. Urine output is slowly increasing status post use of IV Lasix. Patient demonstrated significant edema on exam. Remains normotensive. Adams: doing well Objective - Vital Signs Latest vital signs: Vital Signs Temp Pulse Pulse Resp Resp BP BP 09/25/21 17:49 96 H 09/25/21 17:44 93 H 09/25/21 17:40 93 H 126/58 09/25/21 17:39 96 H 09/25/21 17:34 94 H 09/25/21 17:29 95 H 09/25/21 17:24 94 H 09/25/21 17:19 103 H 09/25/21 17:14 94 H 09/25/21 17:10 93 H 117/59 09/25/21 17:09 93 H 09/25/21 17:04 94 H 09/25/21 16:59 95 H 09/25/21 16:54 94 H 09/25/21 16:49 100 H 09/25/21 16:44 88 09/25/21 16:39 90 09/25/21 16:34 92 H 09/25/21 16:29 91 H 09/25/21 16:24 95 H 09/25/21 16:19 91 H 09/25/21 16:14 89 09/25/21 16:09 91 H 09/25/21 16:04 208 H 09/25/21 16:01 95 H 09/25/21 16:00 98.1 F 91 H 20 132/66 09/25/21 15:58 89 09/25/21 15:57 92 H 132/66 09/25/21 15:53 92 H 09/25/21 15:48 92 H 09/25/21 15:43 94 H 09/25/21 15:38 92 H 09/25/21 15:34 97 H 09/25/21 15:33 94 H 09/25/21 15:28 92 H 09/25/21 15:23 92 H 09/25/21 15:18 97 H 09/25/21 15:17 92 H 09/25/21 15:13 91 H 09/25/21 15:08 90 09/25/21 15:03 92 H 09/25/21 15:02 95 H 09/25/21 14:58 89 09/25/21 14:57 92 H 09/25/21 14:53 95 H 09/25/21 14:50 92 H 140/65 09/25/21 14:48 94 H 09/25/21 14:43 91 H 09/25/21 14:38 95 H 09/25/21 14:33 90 09/25/21 14:28 94 H 09/25/21 14:23 89 09/25/21 14:18 94 H 09/25/21 14:13 90 09/25/21 14:08 92 H 09/25/21 14:03 91 H 09/25/21 13:58 95 H 09/25/21 13:53 95 H 09/25/21 13:50 92 H 129/75 09/25/21 13:48 96 H 09/25/21 13:43 95 H 09/25/21 13:38 94 H 09/25/21 13:33 91 H 09/25/21 13:28 93 H 09/25/21 13:27 97 H 09/25/21 13:23 92 H 09/25/21 13:18 88 09/25/21 13:17 94 H 09/25/21 13:13 87 09/25/21 13:08 89 09/25/21 13:03 82 09/25/21 12:58 92 H 09/25/21 12:53 90 09/25/21 12:50 90 114/57 09/25/21 12:48 87 09/25/21 12:43 83 09/25/21 12:38 89 09/25/21 12:33 84 09/25/21 12:28 84 09/25/21 12:23 85 09/25/21 12:18 89 09/25/21 12:13 88 09/25/21 12:08 91 H 09/25/21 12:03 92 H 09/25/21 11:58 91 H 09/25/21 11:53 92 H 09/25/21 11:50 90 114/62 09/25/21 11:48 91 H 09/25/21 11:43 88 09/25/21 11:38 93 H 09/25/21 11:33 91 H 09/25/21 11:32 94 H 09/25/21 11:28 95 H 09/25/21 11:23 89 09/25/21 11:18 89 09/25/21 11:13 90 09/25/21 11:08 90 09/25/21 11:04 87 09/25/21 11:03 81 09/25/21 10:58 82 09/25/21 10:54 83 89/42 09/25/21 10:53 86 09/25/21 10:51 80 75/38 09/25/21 10:50 83 09/25/21 10:48 80 09/25/21 10:43 82 09/25/21 10:40 86 09/25/21 10:38 84 09/25/21 10:33 92 H 09/25/21 10:28 80 09/25/21 10:23 83 09/25/21 10:19 87 09/25/21 10:18 95 H 09/25/21 10:13 85 09/25/21 10:08 87 09/25/21 10:03 84 09/25/21 09:58 86 09/25/21 09:53 86 09/25/21 09:50 86 110/63 09/25/21 09:48 91 H 09/25/21 09:43 91 H 09/25/21 09:38 93 H 09/25/21 09:33 93 H 09/25/21 09:32 94 H 09/25/21 09:28 101 H 09/25/21 09:26 103 H 09/25/21 09:24 101 H 111/63 09/25/21 09:23 103 H 09/25/21 09:18 93 H 09/25/21 09:13 96 H 09/25/21 09:08 99 H 09/25/21 09:03 96 H 09/25/21 09:01 74 09/25/21 09:00 09/25/21 08:58 99 H 09/25/21 08:53 102 H 09/25/21 08:50 98.2 F 108 H 18 111/63 111/63 09/25/21 08:48 96 H 09/25/21 08:43 109 H 09/25/21 08:38 101 H 09/25/21 08:33 102 H 09/25/21 08:29 103 H 09/25/21 08:28 104 H 09/25/21 08:23 103 H 09/25/21 08:18 105 H 09/25/21 08:17 110 H 09/25/21 08:13 101 H 09/25/21 08:12 112 H 22 09/25/21 08:10 106 H 09/25/21 08:08 103 H 09/25/21 08:03 100 H 09/25/21 08:00 108 H 09/25/21 07:58 96 H 09/25/21 07:53 97 H 09/25/21 07:50 97 H 121/57 09/25/21 07:48 99 H 09/25/21 07:43 108 H 09/25/21 07:38 102 H 09/25/21 07:33 100 H 09/25/21 07:28 98 H 09/25/21 07:27 101 H 09/25/21 07:23 94 H 09/25/21 07:18 89 09/25/21 07:13 90 09/25/21 07:08 94 H 09/25/21 07:03 89 09/25/21 06:58 93 H 09/25/21 06:55 100 H 09/25/21 06:53 89 09/25/21 06:50 90 115/54 09/25/21 06:48 89 09/25/21 06:43 87 09/25/21 06:38 89 09/25/21 06:33 85 09/25/21 06:28 86 09/25/21 06:23 86 09/25/21 06:18 88 09/25/21 06:13 87 09/25/21 06:08 96 H 09/25/21 06:05 90 09/25/21 06:03 86 09/25/21 05:59 86 09/25/21 05:58 87 09/25/21 05:53 83 09/25/21 05:50 85 138/58 09/25/21 05:48 88 09/25/21 05:43 86 09/25/21 05:41 95 H 09/25/21 05:38 108 H 09/25/21 05:36 92 H 09/25/21 05:33 102 H 09/25/21 05:28 85 09/25/21 05:23 85 09/25/21 05:18 87 09/25/21 05:13 84 09/25/21 05:08 83 09/25/21 05:03 84 09/25/21 04:58 82 09/25/21 04:53 83 09/25/21 04:50 84 116/72 09/25/21 04:48 83 09/25/21 04:43 84 09/25/21 04:38 84 09/25/21 04:33 84 09/25/21 04:28 84 09/25/21 04:23 84 09/25/21 04:18 85 09/25/21 04:13 85 09/25/21 04:08 85 09/25/21 04:03 89 09/25/21 03:58 86 09/25/21 03:53 91 H 09/25/21 03:48 91 H 09/25/21 03:43 85 09/25/21 03:38 89 09/25/21 03:33 86 09/25/21 03:30 88 09/25/21 03:28 91 H 09/25/21 03:23 87 09/25/21 03:18 86 09/25/21 03:13 89 09/25/21 03:08 90 09/25/21 03:03 80 09/25/21 02:58 86 09/25/21 02:53 87 09/25/21 02:50 89 111/52 09/25/21 02:48 85 09/25/21 02:43 89 09/25/21 02:38 88 09/25/21 02:33 92 H 09/25/21 02:28 89 09/25/21 02:23 89 09/25/21 02:18 92 H 09/25/21 02:13 82 09/25/21 02:08 82 09/25/21 02:03 87 09/25/21 01:58 82 09/25/21 01:53 83 09/25/21 01:50 83 104/56 09/25/21 01:48 90 09/25/21 01:43 83 09/25/21 01:38 83 09/25/21 01:33 83 09/25/21 01:28 85 09/25/21 01:23 89 09/25/21 01:18 91 H 09/25/21 01:13 90 09/25/21 01:08 80 09/25/21 01:03 84 09/25/21 00:58 86 09/25/21 00:53 85 09/25/21 00:50 86 108/64 09/25/21 00:48 93 H 09/25/21 00:43 85 09/25/21 00:38 87 09/25/21 00:33 87 09/25/21 00:28 85 09/25/21 00:23 88 09/25/21 00:18 95 H 09/25/21 00:13 90 09/25/21 00:10 88 09/25/21 00:08 83 09/25/21 00:03 81 09/24/21 23:58 93 H 09/24/21 23:53 88 09/24/21 23:50 89 114/68 09/24/21 23:48 93 H 09/24/21 23:43 87 09/24/21 23:42 98.8 F 09/24/21 23:38 90 09/24/21 23:33 94 H 09/24/21 23:28 96 H 09/24/21 23:23 98 H 09/24/21 23:19 97 H 117/63 09/24/21 23:18 101 H 09/24/21 23:13 103 H 09/24/21 23:08 97 H 09/24/21 23:03 101 H 09/24/21 22:58 100 H 09/24/21 22:57 95 H 09/24/21 22:53 99 H 09/24/21 22:48 98 H 09/24/21 22:43 101 H 09/24/21 22:38 97 H 09/24/21 22:33 104 H 09/24/21 22:28 98 H 09/24/21 22:23 103 H 09/24/21 22:18 111 H 09/24/21 22:13 101 H 09/24/21 22:08 96 H 09/24/21 22:04 09/24/21 22:03 113 H 09/24/21 21:58 104 H 09/24/21 21:53 99 F 101 H 09/24/21 21:50 103 H 128/73 09/24/21 21:48 102 H 09/24/21 21:43 107 H 09/24/21 21:38 104 H 09/24/21 21:33 103 H 137/74 09/24/21 21:31 104 H 137/74 09/24/21 21:28 103 H 09/24/21 21:23 98 H 09/24/21 21:18 98 H 09/24/21 21:13 98 H 09/24/21 21:08 100 H 09/24/21 21:03 106 H 09/24/21 20:58 104 H 09/24/21 20:53 98 H 09/24/21 20:48 100 H 09/24/21 20:43 98 H 140/79 09/24/21 20:08 97.7 F 09/24/21 20:06 99 H 21 124/79 09/24/21 19:46 97 H 18 119/72 09/24/21 19:30 95 H 18 111/63 09/24/21 19:15 101 H 12 99/45 09/24/21 19:11 105 H 13 106/51 09/24/21 19:05 94 H 19 93/51 09/24/21 19:00 92 H 19 98/53 Pulse Ox Pulse Ox 09/25/21 17:49 95 09/25/21 17:44 96 09/25/21 17:40 09/25/21 17:39 96 09/25/21 17:34 96 09/25/21 17:29 96 09/25/21 17:24 95 09/25/21 17:19 96 09/25/21 17:14 97 09/25/21 17:10 09/25/21 17:09 96 09/25/21 17:04 97 09/25/21 16:59 97 09/25/21 16:54 97 09/25/21 16:49 97 09/25/21 16:44 97 09/25/21 16:39 97 09/25/21 16:34 97 09/25/21 16:29 98 09/25/21 16:24 97 09/25/21 16:19 97 09/25/21 16:14 97 09/25/21 16:09 97 09/25/21 16:04 82 L 09/25/21 16:01 77 L 09/25/21 16:00 98 09/25/21 15:58 98 09/25/21 15:57 09/25/21 15:53 94 09/25/21 15:48 95 09/25/21 15:43 95 09/25/21 15:38 97 09/25/21 15:34 85 09/25/21 15:33 97 09/25/21 15:28 95 09/25/21 15:23 95 09/25/21 15:18 90 09/25/21 15:17 86 09/25/21 15:13 97 09/25/21 15:08 97 09/25/21 15:03 95 09/25/21 15:02 88 09/25/21 14:58 97 09/25/21 14:57 80 L 09/25/21 14:53 94 09/25/21 14:50 80 L 09/25/21 14:48 97 09/25/21 14:43 96 09/25/21 14:38 96 09/25/21 14:33 95 09/25/21 14:28 93 09/25/21 14:23 97 09/25/21 14:18 95 09/25/21 14:13 96 09/25/21 14:08 96 09/25/21 14:03 96 09/25/21 13:58 93 09/25/21 13:53 93 09/25/21 13:50 09/25/21 13:48 92 09/25/21 13:43 95 09/25/21 13:38 95 09/25/21 13:33 95 09/25/21 13:28 96 09/25/21 13:27 86 09/25/21 13:23 93 09/25/21 13:18 94 09/25/21 13:17 82 L 09/25/21 13:13 96 09/25/21 13:08 91 09/25/21 13:03 94 09/25/21 12:58 96 09/25/21 12:53 97 09/25/21 12:50 09/25/21 12:48 92 09/25/21 12:43 94 09/25/21 12:38 94 09/25/21 12:33 97 09/25/21 12:28 96 09/25/21 12:23 96 09/25/21 12:18 96 09/25/21 12:13 94 09/25/21 12:08 94 09/25/21 12:03 93 09/25/21 11:58 92 09/25/21 11:53 94 09/25/21 11:50 09/25/21 11:48 93 09/25/21 11:43 91 09/25/21 11:38 92 09/25/21 11:33 89 09/25/21 11:32 87 09/25/21 11:28 93 09/25/21 11:23 93 09/25/21 11:18 91 09/25/21 11:13 93 09/25/21 11:08 90 09/25/21 11:04 87 09/25/21 11:03 93 09/25/21 10:58 89 09/25/21 10:54 09/25/21 10:53 91 09/25/21 10:51 09/25/21 10:50 89 09/25/21 10:48 91 09/25/21 10:43 91 09/25/21 10:40 88 09/25/21 10:38 91 09/25/21 10:33 93 09/25/21 10:28 92 09/25/21 10:23 91 09/25/21 10:19 89 09/25/21 10:18 90 09/25/21 10:13 90 09/25/21 10:08 91 09/25/21 10:03 91 09/25/21 09:58 93 09/25/21 09:53 93 09/25/21 09:50 09/25/21 09:48 90 09/25/21 09:43 95 09/25/21 09:38 97 09/25/21 09:33 95 09/25/21 09:32 88 09/25/21 09:28 94 09/25/21 09:26 88 09/25/21 09:24 09/25/21 09:23 95 09/25/21 09:18 94 09/25/21 09:13 96 09/25/21 09:08 95 09/25/21 09:03 95 09/25/21 09:01 0 L 09/25/21 09:00 95 09/25/21 08:58 91 09/25/21 08:53 94 09/25/21 08:50 95 09/25/21 08:48 94 09/25/21 08:43 96 09/25/21 08:38 94 09/25/21 08:33 98 09/25/21 08:29 88 09/25/21 08:28 92 09/25/21 08:23 77 L 09/25/21 08:18 95 09/25/21 08:17 61 L 09/25/21 08:13 94 09/25/21 08:12 09/25/21 08:10 85 09/25/21 08:08 93 09/25/21 08:03 94 09/25/21 08:00 68 L 09/25/21 07:58 96 09/25/21 07:53 97 09/25/21 07:50 09/25/21 07:48 97 09/25/21 07:43 68 L 09/25/21 07:38 96 09/25/21 07:33 98 09/25/21 07:28 93 09/25/21 07:27 89 09/25/21 07:23 96 09/25/21 07:18 95 09/25/21 07:13 97 09/25/21 07:08 96 09/25/21 07:03 97 09/25/21 06:58 95 09/25/21 06:55 77 L 09/25/21 06:53 97 09/25/21 06:50 83 L 09/25/21 06:48 95 09/25/21 06:43 96 09/25/21 06:38 95 09/25/21 06:33 95 09/25/21 06:28 95 09/25/21 06:23 95 09/25/21 06:18 95 09/25/21 06:13 93 09/25/21 06:08 95 09/25/21 06:05 80 L 09/25/21 06:03 94 09/25/21 05:59 88 09/25/21 05:58 91 09/25/21 05:53 93 09/25/21 05:50 09/25/21 05:48 93 09/25/21 05:43 91 09/25/21 05:41 88 09/25/21 05:38 88 09/25/21 05:36 89 09/25/21 05:33 93 09/25/21 05:28 95 09/25/21 05:23 95 09/25/21 05:18 95 09/25/21 05:13 95 09/25/21 05:08 95 09/25/21 05:03 95 09/25/21 04:58 94 09/25/21 04:53 95 09/25/21 04:50 84 09/25/21 04:48 94 09/25/21 04:43 96 09/25/21 04:38 95 09/25/21 04:33 93 09/25/21 04:28 94 09/25/21 04:23 93 09/25/21 04:18 93 09/25/21 04:13 94 09/25/21 04:08 95 09/25/21 04:03 95 09/25/21 03:58 93 09/25/21 03:53 94 09/25/21 03:48 93 09/25/21 03:43 96 09/25/21 03:38 91 09/25/21 03:33 92 09/25/21 03:30 89 09/25/21 03:28 93 09/25/21 03:23 94 09/25/21 03:18 96 09/25/21 03:13 95 09/25/21 03:08 96 09/25/21 03:03 96 09/25/21 02:58 96 09/25/21 02:53 95 09/25/21 02:50 09/25/21 02:48 95 09/25/21 02:43 97 09/25/21 02:38 97 09/25/21 02:33 95 09/25/21 02:28 90 09/25/21 02:23 95 09/25/21 02:18 95 09/25/21 02:13 93 09/25/21 02:08 92 09/25/21 02:03 94 09/25/21 01:58 92 09/25/21 01:53 92 09/25/21 01:50 09/25/21 01:48 92 09/25/21 01:43 91 09/25/21 01:38 91 09/25/21 01:33 91 09/25/21 01:28 93 09/25/21 01:23 94 09/25/21 01:18 91 09/25/21 01:13 91 09/25/21 01:08 91 09/25/21 01:03 92 09/25/21 00:58 93 09/25/21 00:53 91 09/25/21 00:50 09/25/21 00:48 93 09/25/21 00:43 92 09/25/21 00:38 93 09/25/21 00:33 93 09/25/21 00:28 94 09/25/21 00:23 93 09/25/21 00:18 81 L 09/25/21 00:13 84 09/25/21 00:10 88 09/25/21 00:08 91 09/25/21 00:03 92 09/24/21 23:58 91 09/24/21 23:53 91 09/24/21 23:50 09/24/21 23:48 93 09/24/21 23:43 92 09/24/21 23:42 09/24/21 23:38 92 09/24/21 23:33 92 09/24/21 23:28 94 09/24/21 23:23 95 09/24/21 23:19 09/24/21 23:18 94 09/24/21 23:13 92 09/24/21 23:08 92 09/24/21 23:03 91 09/24/21 22:58 92 09/24/21 22:57 89 09/24/21 22:53 93 09/24/21 22:48 93 09/24/21 22:43 93 09/24/21 22:38 90 09/24/21 22:33 90 09/24/21 22:28 94 09/24/21 22:23 94 09/24/21 22:18 95 09/24/21 22:13 92 09/24/21 22:08 94 09/24/21 22:04 94 09/24/21 22:03 94 09/24/21 21:58 93 09/24/21 21:53 94 09/24/21 21:50 09/24/21 21:48 94 09/24/21 21:43 94 09/24/21 21:38 93 09/24/21 21:33 95 09/24/21 21:31 09/24/21 21:28 94 09/24/21 21:23 94 09/24/21 21:18 94 09/24/21 21:13 94 09/24/21 21:08 95 09/24/21 21:03 94 09/24/21 20:58 93 09/24/21 20:53 94 09/24/21 20:48 93 09/24/21 20:43 91 09/24/21 20:08 09/24/21 20:06 95 09/24/21 19:46 94 09/24/21 19:30 95 09/24/21 19:15 95 09/24/21 19:11 93 09/24/21 19:05 92 09/24/21 19:00 93 Intake and Output 09/25/21 09/25/21 09/25/21 06:59 14:59 22:59 Intake Total 100 Output Total 175 350 650 Balance -175 -350 -550 Intake: Oral 100 Output: Urine 175 350 650 Indwelling Catheter 175 250 650 Uretheral (Bennett) 100 Other: Total, Intake Amount 100 Total, Output Amount 75 150 275 # Voids Indwelling Catheter 1 1 - Labs Labs: Abnormal lab results 09/24/21 09/25/21 09/25/21 Range/Units 23:26 03:47 06:07 Hgb 9.2 L (10.1-14.3) gm/dl Hct 27.7 L (30.3-42.9) % Magnesium 6.40 H 7.10 H (1.7-2.3) mg/dL
[2021-09-25] MEDS ORDERED: ZOLPIDEM 5 MG TAB PO PRN (18:01)
--- NOTE | 2021-09-26 02:40 | Event Note ---
Date: 09/26/21 Patient is demonstrating clinical improvement. She is having significant diuresis. Bennett remains in place. Patient is normotensive. Tolerating 2L O2 via n/c. Patient likely has a component of sleep apnea secondary to habitus. Will transition to MBU this am.
[2021-09-26] MEDS: ALBUTEROL 2.5 MG/3 ML NEBU IH PRN ×3 (02:45→18:15)
[2021-09-26] MEDS: diphenhydrAMINE 50 MG/ML VIAL IV PRN (03:29)
[2021-09-26] MEDS: ACETAMINOPHEN 325 MG TAB PO PRN ×2 (03:30→10:34)
--- NOTE | 2021-09-26 08:32 | Progress Note ---
Assessment and Plan - Patient Problems (1) Pre-eclampsia added to pre-existing hypertension Current Visit: Yes Status: Acute Plan to address problem: Monitor B/P's closely Normatensive at this time Transfer to [facility] today (2) Advanced maternal age (AMA), 40 years or greater Current Visit: Yes Status: Acute (3) HSV-2 seropositive Current Visit: Yes Status: Acute (4) Alpha thalassemia silent carrier Current Visit: Yes Status: Acute (5) Morbid obesity with BMI of 45.0-49.9, adult Current Visit: Yes Status: Acute (6) Status post primary low transverse section Current Visit: Yes Status: Acute Plan to address problem: Continue routine PP orders Keep dressing clean and dry, remove on POD#2 Anticipate d/c home in 24-48 hrs if stable Subjective - Subjective Date of service: 09/26/21 Principal diagnosis: S/P POD#2; Chronic HTN with superimposed preeclampsia, AMA, Morbid Obesity Interval history: 40 yo, @ 38.1 wks, initiated care with [facility] [place] at 10.6 wks gestation. Her has been complicated by AMA, covid-19, HSV2, cHTN, silent carrier for alpha thalessemia and MO. She was sent to [facility] yesterday for elevated B/Ps and PIH work-up. B/Ps were found to be in severe range, admitted for Magnesium therapy and IOL. Reports +FM. Denies any VB or LOF. Labs: B+, antibody negative; rubella immune; VDRL non-reactive; HBsAg negative; HIV negative; Hep C negative; GC/Chlamydia negative; Panorama low-risk; 1 hr gtt 110; GBS negative. Patient reports: appetite normal, other (remains on 2L O2 via n/c, SOB noted during conversation), no voiding normally (baez catheter remains in place) : in NICU (pt request update on 's status, notified NICU staff) Objective - Vital Signs Latest vital signs: Vital Signs Temp Pulse Pulse Resp Resp BP BP 09/26/21 08:24 103 H 09/26/21 08:19 107 H 09/26/21 08:14 100 H 09/26/21 08:10 98 H 154/74 09/26/21 08:09 99 H 09/26/21 08:04 99 H 09/26/21 07:59 100 H 09/26/21 07:54 98 H 09/26/21 07:49 94 H 09/26/21 07:44 90 09/26/21 07:40 93 H 138/66 09/26/21 07:39 92 H 09/26/21 07:34 87 09/26/21 07:29 91 H 09/26/21 07:24 96 H 09/26/21 07:19 94 H 09/26/21 07:14 92 H 09/26/21 07:10 79 128/60 09/26/21 07:09 94 H 09/26/21 07:08 90 09/26/21 07:04 86 09/26/21 06:59 87 09/26/21 06:54 87 09/26/21 06:49 95 H 09/26/21 06:44 98 H 09/26/21 06:40 90 115/57 09/26/21 06:39 84 09/26/21 06:34 87 09/26/21 06:29 88 09/26/21 06:24 85 09/26/21 06:19 85 09/26/21 06:14 83 09/26/21 06:10 87 115/59 09/26/21 06:09 89 09/26/21 06:04 91 H 09/26/21 05:59 87 09/26/21 05:54 89 09/26/21 05:49 88 09/26/21 05:44 94 H 09/26/21 05:40 89 124/59 09/26/21 05:39 90 09/26/21 05:34 89 09/26/21 05:29 91 H 09/26/21 05:24 92 H 09/26/21 05:19 91 H 09/26/21 05:14 92 H 09/26/21 05:10 91 H 137/63 09/26/21 05:09 92 H 09/26/21 05:05 71 09/26/21 05:04 91 H 09/26/21 04:59 89 09/26/21 04:54 89 09/26/21 04:49 88 09/26/21 04:44 90 09/26/21 04:40 88 129/59 09/26/21 04:39 90 02/23/22 04:34 88 09/26/21 04:29 88 09/26/21 04:24 90 09/26/21 04:19 89 09/26/21 04:14 92 H 09/26/21 04:10 93 H 140/67 09/26/21 04:09 95 H 09/26/21 04:04 92 H 09/26/21 03:59 91 H 09/26/21 03:54 91 H 09/26/21 03:49 92 H 09/26/21 03:44 94 H 09/26/21 03:40 94 H 140/74 09/26/21 03:39 99 H 09/26/21 03:34 95 H 09/26/21 03:33 99.3 F 96 H 18 116/58 09/26/21 03:29 103 H 09/26/21 03:24 96 H 09/26/21 03:19 97 H 09/26/21 03:14 92 H 09/26/21 03:10 90 116/58 09/26/21 03:09 89 09/26/21 03:04 87 09/26/21 02:59 90 09/26/21 02:54 90 09/26/21 02:49 89 09/26/21 02:46 88 16 09/26/21 02:44 91 H 09/26/21 02:40 90 120/61 09/26/21 02:39 92 H 09/26/21 02:34 91 H 09/26/21 02:29 92 H 09/26/21 02:24 92 H 09/26/21 02:19 95 H 09/26/21 02:14 88 09/26/21 02:10 90 113/56 09/26/21 02:09 90 09/26/21 02:06 96 H 09/26/21 02:05 98.8 F 09/26/21 02:04 89 09/26/21 01:59 88 09/26/21 01:54 95 H 09/26/21 01:49 89 09/26/21 01:44 89 09/26/21 01:40 86 126/58 09/26/21 01:39 92 H 09/26/21 01:34 86 09/26/21 01:29 84 09/26/21 01:24 84 09/26/21 01:19 86 09/26/21 01:14 91 H 09/26/21 01:10 84 112/56 09/26/21 01:09 84 09/26/21 01:04 86 09/26/21 00:59 85 09/26/21 00:54 86 09/26/21 00:49 85 09/26/21 00:44 89 09/26/21 00:40 85 113/58 09/26/21 00:39 88 09/26/21 00:34 88 09/26/21 00:29 87 09/26/21 00:24 87 09/26/21 00:19 93 H 09/26/21 00:14 91 H 09/26/21 00:10 86 113/54 09/26/21 00:09 86 09/26/21 00:04 90 09/25/21 23:59 88 09/25/21 23:54 94 H 09/25/21 23:50 90 09/25/21 23:49 84 09/25/21 23:44 82 09/25/21 23:40 99.0 F 84 18 115/58 115/58 09/25/21 23:39 82 09/25/21 23:34 82 09/25/21 23:30 89 09/25/21 23:29 86 09/25/21 23:24 85 09/25/21 23:19 86 09/25/21 23:14 84 09/25/21 23:10 83 117/55 09/25/21 23:09 84 09/25/21 23:04 85 09/25/21 22:59 89 09/25/21 22:54 88 09/25/21 22:49 87 09/25/21 22:44 86 09/25/21 22:40 86 111/54 09/25/21 22:39 92 H 09/25/21 22:34 88 09/25/21 22:29 92 H 09/25/21 22:24 88 09/25/21 22:19 93 H 09/25/21 22:14 110 H 09/25/21 22:10 105 H 125/71 09/25/21 22:09 105 H 09/25/21 22:04 94 H 09/25/21 21:59 97 H 09/25/21 21:54 97 H 09/25/21 21:49 96 H 09/25/21 21:48 95 H 115/58 09/25/21 21:44 88 09/25/21 21:40 88 115/58 09/25/21 21:39 94 H 09/25/21 21:34 103 H 09/25/21 21:29 87 09/25/21 21:24 89 09/25/21 21:19 89 09/25/21 21:14 102 H 09/25/21 21:10 97 H 132/63 09/25/21 21:09 92 H 09/25/21 21:04 90 09/25/21 20:59 93 H 09/25/21 20:54 99 H 09/25/21 20:53 102 H 09/25/21 20:49 91 H 09/25/21 20:44 92 H 09/25/21 20:40 94 H 142/74 09/25/21 20:39 92 H 09/25/21 20:34 97 H 09/25/21 20:30 92 H 18 09/25/21 20:29 98 H 09/25/21 20:24 102 H 09/25/21 20:19 98 H 09/25/21 20:14 104 H 09/25/21 20:10 95 H 134/76 09/25/21 20:09 96 H 09/25/21 20:04 99 H 09/25/21 19:59 95 H 09/25/21 19:54 99 H 09/25/21 19:49 97 H 09/25/21 19:44 95 H 09/25/21 19:40 93 H 132/66 09/25/21 19:39 92 H 09/25/21 19:34 98 H 09/25/21 19:29 96 H 09/25/21 19:24 101 H 09/25/21 19:20 96 H 09/25/21 19:19 97 H 09/25/21 19:14 93 H 09/25/21 19:10 97 H 143/71 09/25/21 19:09 96 H 09/25/21 19:05 99.1 F 97 H 20 143/71 09/25/21 19:04 98 H 09/25/21 18:59 99 H 09/25/21 18:54 97 H 09/25/21 18:49 101 H 09/25/21 18:44 97 H 09/25/21 18:42 93 H 109/58 09/25/21 18:39 92 H 09/25/21 18:34 95 H 09/25/21 18:29 91 H 09/25/21 18:24 94 H 09/25/21 18:19 95 H 09/25/21 18:14 94 H 09/25/21 18:09 93 H 09/25/21 18:04 97 H 09/25/21 17:59 95 H 09/25/21 17:54 103 H 09/25/21 17:49 96 H 09/25/21 17:44 93 H 09/25/21 17:40 93 H 126/58 09/25/21 17:39 96 H 09/25/21 17:34 94 H 09/25/21 17:29 95 H 09/25/21 17:24 94 H 09/25/21 17:19 103 H 09/25/21 17:14 94 H 09/25/21 17:10 93 H 117/59 09/25/21 17:09 93 H 09/25/21 17:04 94 H 09/25/21 16:59 95 H 09/25/21 16:54 94 H 09/25/21 16:49 100 H 09/25/21 16:44 88 09/25/21 16:39 90 09/25/21 16:34 92 H 09/25/21 16:29 91 H 09/25/21 16:24 95 H 09/25/21 16:19 91 H 09/25/21 16:14 89 09/25/21 16:09 91 H 09/25/21 16:04 208 H 09/25/21 16:01 95 H 09/25/21 16:00 98.1 F 91 H 20 132/66 09/25/21 15:58 89 09/25/21 15:57 92 H 132/66 09/25/21 15:53 92 H 09/25/21 15:48 92 H 09/25/21 15:43 94 H 09/25/21 15:38 92 H 09/25/21 15:34 97 H 09/25/21 15:33 94 H 09/25/21 15:28 92 H 09/25/21 15:23 92 H 09/25/21 15:18 97 H 09/25/21 15:17 92 H 09/25/21 15:13 91 H 09/25/21 15:08 90 09/25/21 15:03 92 H 09/25/21 15:02 95 H 09/25/21 14:58 89 09/25/21 14:57 92 H 09/25/21 14:53 95 H 09/25/21 14:50 92 H 140/65 09/25/21 14:48 94 H 09/25/21 14:43 91 H 09/25/21 14:38 95 H 09/25/21 14:33 90 09/25/21 14:28 94 H 09/25/21 14:23 89 09/25/21 14:18 94 H 09/25/21 14:13 90 09/25/21 14:08 92 H 09/25/21 14:03 91 H 09/25/21 13:58 95 H 09/25/21 13:53 95 H 09/25/21 13:50 92 H 129/75 09/25/21 13:48 96 H 09/25/21 13:43 95 H 09/25/21 13:38 94 H 09/25/21 13:33 91 H 09/25/21 13:28 93 H 09/25/21 13:27 97 H 09/25/21 13:23 92 H 09/25/21 13:18 88 09/25/21 13:17 94 H 09/25/21 13:13 87 09/25/21 13:08 89 09/25/21 13:03 82 09/25/21 12:58 92 H 09/25/21 12:53 90 09/25/21 12:50 90 114/57 09/25/21 12:48 87 09/25/21 12:43 83 09/25/21 12:38 89 09/25/21 12:33 84 09/25/21 12:28 84 09/25/21 12:23 85 09/25/21 12:18 89 09/25/21 12:13 88 09/25/21 12:08 91 H 09/25/21 12:03 92 H 09/25/21 11:58 91 H 09/25/21 11:53 92 H 09/25/21 11:50 90 114/62 09/25/21 11:48 91 H 09/25/21 11:43 88 09/25/21 11:38 93 H 09/25/21 11:33 91 H 09/25/21 11:32 94 H 09/25/21 11:28 95 H 09/25/21 11:23 89 09/25/21 11:18 89 09/25/21 11:13 90 09/25/21 11:08 90 09/25/21 11:04 87 09/25/21 11:03 81 09/25/21 10:58 82 09/25/21 10:54 83 89/42 09/25/21 10:53 86 09/25/21 10:51 80 75/38 09/25/21 10:50 83 09/25/21 10:48 80 09/25/21 10:43 82 09/25/21 10:40 86 09/25/21 10:38 84 09/25/21 10:33 92 H 09/25/21 10:28 80 09/25/21 10:23 83 09/25/21 10:19 87 09/25/21 10:18 95 H 09/25/21 10:13 85 09/25/21 10:08 87 09/25/21 10:03 84 09/25/21 09:58 86 09/25/21 09:53 86 09/25/21 09:50 86 110/63 09/25/21 09:48 91 H 09/25/21 09:43 91 H 09/25/21 09:38 93 H 09/25/21 09:33 93 H 09/25/21 09:32 94 H 09/25/21 09:28 101 H 09/25/21 09:26 103 H 09/25/21 09:24 101 H 111/63 09/25/21 09:23 103 H 09/25/21 09:18 93 H 09/25/21 09:13 96 H 09/25/21 09:08 99 H 09/25/21 09:03 96 H 09/25/21 09:01 74 09/25/21 09:00 09/25/21 08:58 99 H 09/25/21 08:53 102 H 09/25/21 08:50 98.2 F 108 H 18 111/63 111/63 09/25/21 08:48 96 H 09/25/21 08:43 109 H 09/25/21 08:38 101 H 09/25/21 08:33 102 H 09/25/21 08:29 103 H Pulse Ox Pulse Ox 09/26/21 08:24 97 09/26/21 08:19 97 09/26/21 08:14 97 09/26/21 08:10 09/26/21 08:09 97 09/26/21 08:04 97 09/26/21 07:59 97 09/26/21 07:54 97 09/26/21 07:49 97 09/26/21 07:44 97 09/26/21 07:40 09/26/21 07:39 97 09/26/21 07:34 97 09/26/21 07:29 97 09/26/21 07:24 97 09/26/21 07:19 95 09/26/21 07:14 88 09/26/21 07:10 09/26/21 07:09 90 09/26/21 07:08 82 L 09/26/21 07:04 97 09/26/21 06:59 96 09/26/21 06:54 95 09/26/21 06:49 92 09/26/21 06:44 93 09/26/21 06:40 09/26/21 06:39 89 09/26/21 06:34 95 09/26/21 06:29 96 09/26/21 06:24 92 09/26/21 06:19 92 09/26/21 06:14 94 09/26/21 06:10 09/26/21 06:09 95 09/26/21 06:04 96 09/26/21 05:59 97 09/26/21 05:54 96 09/26/21 05:49 97 09/26/21 05:44 96 09/26/21 05:40 09/26/21 05:39 96 09/26/21 05:34 96 09/26/21 05:29 96 09/26/21 05:24 95 09/26/21 05:19 96 09/26/21 05:14 90 09/26/21 05:10 09/26/21 05:09 96 09/26/21 05:05 87 09/26/21 05:04 93 09/26/21 04:59 93 09/26/21 04:54 95 09/26/21 04:49 95 09/26/21 04:44 94 09/26/21 04:40 09/26/21 04:39 94 09/26/21 04:34 94 09/26/21 04:29 94 09/26/21 04:24 96 09/26/21 04:19 95 09/26/21 04:14 96 09/26/21 04:10 09/26/21 04:09 95 09/26/21 04:04 97 09/26/21 03:59 98 09/26/21 03:54 97 09/26/21 03:49 97 09/26/21 03:44 97 09/26/21 03:40 09/26/21 03:39 95 09/26/21 03:34 96 09/26/21 03:33 96 09/26/21 03:29 93 09/26/21 03:24 96 09/26/21 03:19 94 09/26/21 03:14 95 09/26/21 03:10 09/26/21 03:09 95 09/26/21 03:04 95 09/26/21 02:59 95 09/26/21 02:54 94 09/26/21 02:49 94 09/26/21 02:46 09/26/21 02:44 96 09/26/21 02:40 09/26/21 02:39 96 09/26/21 02:34 96 09/26/21 02:29 96 09/26/21 02:24 97 09/26/21 02:19 96 09/26/21 02:14 96 09/26/21 02:10 09/26/21 02:09 95 09/26/21 02:06 88 09/26/21 02:05 09/26/21 02:04 95 09/26/21 01:59 95 09/26/21 01:54 91 09/26/21 01:49 94 09/26/21 01:44 95 09/26/21 01:40 09/26/21 01:39 94 09/26/21 01:34 94 09/26/21 01:29 94 09/26/21 01:24 94 09/26/21 01:19 94 09/26/21 01:14 94 09/26/21 01:10 09/26/21 01:09 94 02/23/22 01:04 93 09/26/21 00:59 94 09/26/21 00:54 93 09/26/21 00:49 93 09/26/21 00:44 93 09/26/21 00:40 09/26/21 00:39 94 09/26/21 00:34 92 09/26/21 00:29 93 09/26/21 00:24 93 09/26/21 00:19 92 09/26/21 00:14 92 09/26/21 00:10 09/26/21 00:09 92 09/26/21 00:04 93 09/25/21 23:59 92 09/25/21 23:54 95 09/25/21 23:50 87 09/25/21 23:49 94 09/25/21 23:44 94 09/25/21 23:40 95 09/25/21 23:39 94 09/25/21 23:34 95 09/25/21 23:30 89 09/25/21 23:29 94 09/25/21 23:24 94 09/25/21 23:19 95 09/25/21 23:14 95 09/25/21 23:10 09/25/21 23:09 95 09/25/21 23:04 94 09/25/21 22:59 94 09/25/21 22:54 94 09/25/21 22:49 93 09/25/21 22:44 93 09/25/21 22:40 09/25/21 22:39 96 09/25/21 22:34 95 09/25/21 22:29 96 09/25/21 22:24 95 09/25/21 22:19 96 09/25/21 22:14 97 09/25/21 22:10 09/25/21 22:09 97 09/25/21 22:04 95 09/25/21 21:59 96 09/25/21 21:54 96 09/25/21 21:49 97 22 21:48 22 21:44 96 09/25/21 21:40 0222 21:39 96 2222 21:34 94 09/25/21 21:29 96 09/25/21 21:24 94 09/25/21 21:19 95 09/25/21 21:14 94 09/25/21 21:10 09/25/21 21:09 96 09/25/21 21:04 95 09/25/21 20:59 96 09/25/21 20:54 90 09/25/21 20:53 87 09/25/21 20:49 96 09/25/21 20:44 95 09/25/21 20:40 09/25/21 20:39 96 09/25/21 20:34 97 09/25/21 20:30 09/25/21 20:29 97 09/25/21 20:24 97 09/25/21 20:19 96 09/25/21 20:14 98 09/25/21 20:10 09/25/21 20:09 97 09/25/21 20:04 97 09/25/21 19:59 98 09/25/21 19:54 97 09/25/21 19:49 97 09/25/21 19:44 96 09/25/21 19:40 09/25/21 19:39 98 09/25/21 19:34 98 09/25/21 19:29 97 09/25/21 19:24 94 09/25/21 19:20 87 09/25/21 19:19 97 09/25/21 19:14 97 09/25/21 19:10 09/25/21 19:09 97 09/25/21 19:05 97 97 09/25/21 19:04 97 09/25/21 18:59 96 09/25/21 18:54 96 09/25/21 18:49 96 09/25/21 18:44 95 09/25/21 18:42 09/25/21 18:39 96 09/25/21 18:34 96 09/25/21 18:29 95 09/25/21 18:24 96 09/25/21 18:19 95 09/25/21 18:14 96 09/25/21 18:09 95 09/25/21 18:04 96 09/25/21 17:59 95 09/25/21 17:54 96 09/25/21 17:49 95 09/25/21 17:44 96 09/25/21 17:40 09/25/21 17:39 96 09/25/21 17:34 96 09/25/21 17:29 96 09/25/21 17:24 95 09/25/21 17:19 96 09/25/21 17:14 97 09/25/21 17:10 09/25/21 17:09 96 09/25/21 17:04 97 09/25/21 16:59 97 09/25/21 16:54 97 09/25/21 16:49 97 09/25/21 16:44 97 09/25/21 16:39 97 09/25/21 16:34 97 09/25/21 16:29 98 09/25/21 16:24 97 09/25/21 16:19 97 09/25/21 16:14 97 09/25/21 16:09 97 09/25/21 16:04 82 L 09/25/21 16:01 77 L 09/25/21 16:00 98 09/25/21 15:58 98 09/25/21 15:57 09/25/21 15:53 94 09/25/21 15:48 95 09/25/21 15:43 95 09/25/21 15:38 97 09/25/21 15:34 85 09/25/21 15:33 97 09/25/21 15:28 95 09/25/21 15:23 95 09/25/21 15:18 90 09/25/21 15:17 86 09/25/21 15:13 97 09/25/21 15:08 97 09/25/21 15:03 95 09/25/21 15:02 88 09/25/21 14:58 97 09/25/21 14:57 80 L 09/25/21 14:53 94 09/25/21 14:50 80 L 09/25/21 14:48 97 09/25/21 14:43 96 09/25/21 14:38 96 09/25/21 14:33 95 09/25/21 14:28 93 09/25/21 14:23 97 09/25/21 14:18 95 09/25/21 14:13 96 09/25/21 14:08 96 09/25/21 14:03 96 09/25/21 13:58 93 09/25/21 13:53 93 09/25/21 13:50 09/25/21 13:48 92 09/25/21 13:43 95 09/25/21 13:38 95 09/25/21 13:33 95 09/25/21 13:28 96 09/25/21 13:27 86 09/25/21 13:23 93 09/25/21 13:18 94 09/25/21 13:17 82 L 09/25/21 13:13 96 09/25/21 13:08 91 09/25/21 13:03 94 09/25/21 12:58 96 09/25/21 12:53 97 09/25/21 12:50 09/25/21 12:48 92 09/25/21 12:43 94 09/25/21 12:38 94 09/25/21 12:33 97 09/25/21 12:28 96 09/25/21 12:23 96 09/25/21 12:18 96 09/25/21 12:13 94 09/25/21 12:08 94 09/25/21 12:03 93 09/25/21 11:58 92 09/25/21 11:53 94 09/25/21 11:50 09/25/21 11:48 93 09/25/21 11:43 91 09/25/21 11:38 92 09/25/21 11:33 89 09/25/21 11:32 87 09/25/21 11:28 93 09/25/21 11:23 93 09/25/21 11:18 91 09/25/21 11:13 93 09/25/21 11:08 90 09/25/21 11:04 87 09/25/21 11:03 93 09/25/21 10:58 89 09/25/21 10:54 09/25/21 10:53 91 09/25/21 10:51 09/25/21 10:50 89 09/25/21 10:48 91 09/25/21 10:43 91 09/25/21 10:40 88 09/25/21 10:38 91 09/25/21 10:33 93 09/25/21 10:28 92 09/25/21 10:23 91 09/25/21 10:19 89 09/25/21 10:18 90 09/25/21 10:13 90 09/25/21 10:08 91 09/25/21 10:03 91 09/25/21 09:58 93 09/25/21 09:53 93 09/25/21 09:50 09/25/21 09:48 90 09/25/21 09:43 95 09/25/21 09:38 97 09/25/21 09:33 95 09/25/21 09:32 88 09/25/21 09:28 94 09/25/21 09:26 88 09/25/21 09:24 09/25/21 09:23 95 09/25/21 09:18 94 09/25/21 09:13 96 09/25/21 09:08 95 09/25/21 09:03 95 09/25/21 09:01 0 L 09/25/21 09:00 95 09/25/21 08:58 91 09/25/21 08:53 94 09/25/21 08:50 95 09/25/21 08:48 94 09/25/21 08:43 96 09/25/21 08:38 94 09/25/21 08:33 98 09/25/21 08:29 88 Intake and Output 09/25/21 09/26/21 09/26/21 23:59 07:59 15:59 Intake Total 905 240 Output Total 2200 650 Balance -1295 -410 Intake: Oral 905 240 Output: Urine 2200 650 Indwelling Catheter 2200 650 Other: Total, Intake Amount 240 240 Total, Output Amount 600 250
[2021-09-26] MEDS: valACYclovir 500 MG TAB PO SCH (10:32)
[2021-09-26] MEDS: oxyCODONE /ACETAMINOPHEN 5-325MG TAB PO PRN ×2 (14:24→20:29)
[2021-09-26] MEDS: IBUPROFEN 600 MG TAB PO PRN (22:22)
[2021-09-27] MEDS: oxyCODONE /ACETAMINOPHEN 5-325MG TAB PO PRN ×3 (03:28→15:10)
[2021-09-27] MEDS: IBUPROFEN 600 MG TAB PO PRN ×2 (06:06→12:32)
[2021-09-27] MEDS ORDERED: TETANUS,DIPH,PERTUSS(ACELL) VACCINE 0.5 ML SYRINGE IM ONE (06:09)
[2021-09-27 07:09] LABS: BUN/Creatinine Ratio 19; Blood Urea Nitrogen 15 mg/dL (7-17); Calcium 8.8 mg/dL (8.4-10.2); Hemolysis Index 1
[2021-09-27] MEDS: valACYclovir 500 MG TAB PO SCH (09:43)
[2021-09-27] MEDS: ALBUTEROL 2.5 MG/3 ML NEBU IH PRN ×2 (09:50→15:13)
--- NOTE | 2021-09-27 10:15 | Event Note ---
Date: 09/27/21 Pt called on-call physician to the bedside. Pt voiced her concerns in presence of charge nurse, and nurse for thirty minutes. Pt received breathing treatment in my presence. Plan to change steristrips. Continue postoperative care.
[2021-09-27] MEDS ORDERED: CLINDAMYCIN 300 MG CAP PO SCH (11:00)
--- NOTE | 2021-09-27 12:06 | Consultation ---
History of Present Illness - Reason for Consult Consult date: 09/27/21 Reason for consult: possible depression - Chief Complaint Chief complaint: Elevated B/P - History of Present Psychiatric Illness The patient is a 40 year old female with no psychiatric history who was consulted for possible depression. In my encounter with the patient, she is calm but upset. The patient reports being upset with the care she is getting. She patient denies being depressed and denies being excessive anxious. The patient denies having suicidal ideation and denies hallucinations. PAST PSYCHIATRIC HISTORY Diagnoses: Denies Suicide attempts or Self-harm behavior:Denies Prior psychiatric hospitalizations: Denies Substance Abuse history: Denies Previous psychiatric medications tried: Denies Outpatient treatment: Denies PAST MEDICAL HISTORY: Family Psychiatric History: Not available SOCIAL HISTORY Marital Status: Living Arrangements: Lives alone Employment Status: Unemployed Access to guns/weapons: None reported Education:Associates History of Abuse: None reported Legal History: None reported REVIEW OF SYSTEMS Constitutional: Negative for weight loss ENT: Negative for stridor Respiratory: Negative for cough or hemoptysis All other systems reviewed and are negative MENTAL STATUS EXAMINATION General Appearance and Behavior: Age appropriate, good hygiene, wearing appropriate clothes, good eye contact, cooperative polite with questioning. Cooperation: Participating/engaged Psychomotor Behavior: unremarkable and within normal limits Mood:angry Affect and affective range: congruent with mood Thought Process:Goal oriented Thought Content: Reality oriented Speech: Normal volume, Regular rate and rhythm Intellectual Functioning: Average Suicidal Ideation: Denies Homicidal Ideation: Denies Hallucinations: Denies Impulse Control: Normal Insight and Judgment:Limited insight and good judgment Memory: Normal Attention: Distractible Orientation: Alert, oriented x4 Assessment and Plan (1) Current Visit: Yes Status: Acute RECOMMENDATIONS Risks, benefits and alternatives of medications discussed with the patient, questions answered and consent obtained from patient. PSYCHOTHERAPY: Supportive psychotherapy provided MEDICAL: Per primary team DELIRIUM PRECAUTIONS: Please re-orient patient frequently, keep lights on during the day, and minimize benzodiazepines and opiates as these medications could worsen patient's confusion. WIDE AREA NETWORK ADMINISTRATOR: Per medical team DISPOSITION: Do not recommend acute inpatient psychiatric hospitalization at this time. The handle assembler will provide patient with psychiatric outpatient resources. FOLLOW-UP: Will sign off. Thank you for the consult. Please contact with any questions and/or concerns. Medications and Allergies Medications and Allergies Allergies Allergy/AdvReac Type Severity Reaction Status Date / Time amoxicillin [Amoxicillin] Allergy Swelling Verified 09/20/21 20:31 pork derived (porcine) Allergy Hives Verified 09/20/21 20:31 soy Allergy Hives Verified 09/20/21 20:32 strawberry [Donaldson] Allergy Itching Verified 09/03/21 14:13 Home Medications Medication Instructions Recorded Confirmed Last Taken Type Promethazine /Codeine 5 ml PO Q6H PRN #60 ml 08/15/13 Unknown Rx [Phenergan/Codeine 6.25-10 mg/5 ml] Clindamycin [Clindamycin CAP] 300 mg PO Q12H #14 cap 09/27/21 Unknown Rx Ferrous Sulfate [Feosol 325 MG tab] 325 mg PO QDAY #30 tablet 09/27/21 Unknown Rx Ibuprofen [Motrin] 600 mg PO Q6H PRN #30 tablet 09/27/21 Unknown Rx oxyCODONE /ACETAMINOPHEN [Percocet 1 tab PO Q6HR PRN #40 tablet 09/27/21 Unknown Rx 5/325] Active Meds: Active Medications Acetaminophen (Acetaminophen 325 Mg Tab) 650 mg PO Q4H PRN PRN Reason: Pain, Mild (1-3) Last Admin: 09/26/21 10:34 Dose: 650 mg Albuterol (Albuterol 2.5 Mg/3 Ml Nebu) 2.5 mg IH Q4HRT PRN PRN Reason: Wheezing Last Admin: 09/27/21 09:50 Dose: 2.5 mg Butorphanol Tartrate (Butorphanol 2 Mg/1 Ml Inj) 1 mg IV Q2H PRN PRN Reason: Pain, Moderate(4-6) LABOR PAIN Last Admin: 09/22/21 23:34 Dose: 1 mg Carboprost Tromethamine (Carboprost Tromethamine 250 Mcg/1 Ml Inj) 250 mcg IM ONCE PRN PRN Reason: Uterine Bleeding Citric Acid/Sodium Citrate (Bicitra Oral Liqd 30ml) 30 ml PO ONCE LINA Last Admin: 09/24/21 17:13 Dose: 30 ml Clindamycin HCl (Clindamycin 300 Mg Cap) 300 mg PO BID LINA; Protocol Diphenhydramine HCl (Diphenhydramine 50 Mg/Ml Vial) 25 mg IV Q6H PRN PRN Reason: Itching Last Admin: 09/26/21 03:29 Dose: 25 mg Diphtheria/Tetanus/Acell Pertussis (Tetanus,Diph,Pertuss(Acell) Vaccine 0.5 Ml Syringe) 0.5 ml IM .ONCE ONE Stop: 09/27/21 06:10 Famotidine (Famotidine 20 Mg/2 Ml Inj) 20 mg IV ONCE LINA Last Admin: 09/24/21 17:11 Dose: 20 mg Fentanyl (Fentanyl 100 Mcg/2 Ml Inj) 100 mcg IV Q2H PRN PRN Reason: Pain,Severe (7-10) LABOR PAIN Last Admin: 09/23/21 02:40 Dose: 100 mcg Hydralazine HCl (Hydralazine 20 Mg/1 Ml Inj) 10 mg IV Q30MIN PRN PRN Reason: Hypertension Last Admin: 09/24/21 08:10 Dose: 10 mg Magnesium Sulfate (Magnesium Sulfate 40gm/1000ml) 40 gm in 1,000 mls @ 50 mls/hr IV DIRECT LINA Last Admin: 09/20/21 20:57 Dose: 2 gm/hr, 50 mls/hr Oxytocin/Sodium Chloride (Pitocin/Ns 30 Unit/500ml) 30 units in 500 mls @ 2 mls/hr IV TITR LINA; Protocol Last Titration: 09/24/21 16:25 Dose: 0 mls/hr, 0 mls/hr Lactated Ringer's (Lactated Ringers) 1,000 mls @ 125 mls/hr IV DIRECT LINA Last Admin: 09/24/21 12:43 Dose: 75 mls/hr Oxytocin/Sodium Chloride (Pitocin/Ns 30 Unit/500ml) 30 units in 500 mls @ 40 mls/hr IV TITR LINA; Protocol Fentanyl/Bupivacaine/Sodium Chlor (Fentanyl-Bupiv 2 Mcg/Ml-0.125%) 200 mcg in 100 mls @ 12 mls/hr EPIDURAL TITR LINA; Protocol Last Admin: 09/24/21 09:23 Dose: 12 mls/hr Oxytocin/Sodium Chloride (Pitocin/Ns 30 Unit/500ml) 30 units in 500 mls @ 40 mls/hr IV TITR LINA; Protocol Ibuprofen (Ibuprofen 600 Mg Tab) 600 mg PO Q6H PRN PRN Reason: Pain, Mild (1-3) Last Admin: 09/27/21 06:06 Dose: 600 mg Ketorolac Tromethamine (Ketorolac 30 Mg/1 Ml Inj) 30 mg IV Q6H PRN PRN Reason: Pain, Moderate (4-6) Stop: 09/29/21 17:50 Last Admin: 09/25/21 21:53 Dose: 30 mg Labetalol HCl (Labetalol 200 Mg Tab) 200 mg PO BID [facility] Last Admin: 09/27/21 09:43 Dose: 200 mg Loperamide HCl (Loperamide 2 Mg Cap) 2 mg PO ONCE PRN PRN Reason: give with Hemabate Magnesium Hydroxide (Magnesium Hydroxide (Mom) Oral Liqd Udc) 30 ml PO QHS PRN PRN Reason: Constip Unrelieved By Senna Methylergonovine Maleate (Methylergonovine Maleate 0.2 Mg/Ml Vial) 0.2 mg IM ONCE PRN PRN Reason: Uterine Bleeding Metoclopramide HCl (Metoclopramide 10 Mg/2 Ml Inj) 10 mg IV ONCE [facility] Last Admin: 09/24/21 17:05 Dose: 10 mg Mineral Oil (Mineral Oil 30 Ml Oral Liqd) 30 ml PO QHS PRN PRN Reason: Constipation Misoprostol (Misoprostol 200 Mcg Tab) 800 mcg MT ONCE PRN PRN Reason: Uterine Bleeding Misoprostol (Misoprostol 25 Mcg Tab) 25 mcg VG Q4H PRN PRN Reason: Labor Induction Last Admin: 09/22/21 09:26 Dose: 25 mcg Morphine Sulfate (Morphine 4 Mg/1 Ml Inj) 4 mg IV Q4H PRN PRN Reason: Pain , Severe (7-10) Multi-Ingredient Ointment (Lanolin/Zinc/Dimethicone (Lansinoh) 7 Gm) 1 applic TP PRN PRN PRN Reason: dryness/cracking Last Admin: 09/27/21 09:46 Dose: 1 applic Nalbuphine HCl (Nalbuphine 10 Mg/1 Ml Inj) 2.5 mg IV Q2H PRN PRN Reason: Itching Naloxone HCl (Naloxone 0.4 Mg/1 Ml Inj) 0.2 mg IV Q2MIN PRN PRN Reason: Res Rate </= 8 or 02 SAT < 92% Ondansetron HCl (Ondansetron 4 Mg/2 Ml Inj) 4 mg IV Q8H PRN PRN Reason: Nausea And Vomiting Oxycodone/Acetaminophen (Oxycodone /Acetaminophen 5-325mg Tab) 2 tab PO Q4H PRN PRN Reason: Pain, Moderate (4-6) Last Admin: 09/27/21 09:44 Dose: 2 tab Oxytocin (Oxytocin 10 Unit/1 Ml Inj) 10 unit IM ONCE PRN PRN Reason: Uterine Bleeding Phenylephrine HCl (Phenylephrine 10 Mg/1 Ml Inj Sdv) 1 mg IV Q3M PRN PRN Reason: Hypotension Last Admin: 09/23/21 07:49 Dose: 1 mg Promethazine HCl (Promethazine 25 Mg Tab) 25 mg PO Q6H PRN PRN Reason: Nausea And Vomiting Promethazine HCl (Promethazine 25 Mg Rect Supp) 25 mg MT Q6H PRN PRN Reason: Nausea And Vomiting Sodium Chloride (Sodium Chloride 0.9% 10 Ml Flush Syringe) 10 ml IV PRN LINA Terbutaline Sulfate (Terbutaline 1 Mg/1 Ml Inj) 0.25 mg SUB-Q ONCE PRN PRN Reason: Hyperstimulation/Hypertonicity Valacyclovir HCl (Valacyclovir 500 Mg Tab) 1,000 mg PO QDAY LINA Last Admin: 09/27/21 09:43 Dose: 1,000 mg Witch Anyi/Glycerin (Witch Anyi/ Glycerin Pad) 1 each TP PRN PRN PRN Reason: Hemorrhoids/cleansing/soothing Zolpidem Tartrate (Zolpidem 5 Mg Tab) 10 mg PO QHS PRN PRN Reason: Sleep Mental Status Exam - Vital signs Last Vital Signs Temp 98.6 F 09/27/21 08:21 Pulse 97 H 09/27/21 09:51 Resp 18 09/27/21 09:51 BP 157/70 09/27/21 09:43 Pulse Ox 95 09/27/21 08:21 Results Result Diagrams: 09/25/21 06:07 09/27/21 06:45 Abnormal lab results 09/27/21 Range/Units 06:45 Sodium 134 L (137-145) mmol/L All other labs normal.
--- NOTE | 2021-09-27 13:38 | Event Note ---
Date: 09/27/21 Called to patient bedside because pt is concerned about her incision. She reports that her incision felt like it was being opened and the nurses were taking out her sutures. Incision examined. Some serosanguinous drainage noted but no active bleeding. Steristrips replaced. I explained to the patient that she may have unforseen complications after her labor and delivery and that is the reason for her close postoperative follow up and assessment. She expresses understanding and that she wants to go home. Pt has an appt scheduled for Saturday, October 02, 2021 at 3 pm.
--- NOTE | 2021-09-27 13:41 | Discharge Summary ---
Providers - Providers Date of Admission: 09/21/21 10:41 Date of discharge: 09/27/21 Attending physician: CAROL FERREIRA 09/26/21 13:54 Consult to Mental Health [CONS] Routine Reason For Exam: possible depression, enuresis Primary care physician: CAROL FERREIRA Hospitalization Reason for admission: other (preeclampsia ) Delivery: Procedure: section, primary low transverse Procedure details: Please see operative report Incision: intact (with steristrips) Other procedures: none complications: hematoma (suspected hematoma at right side of incision ) Discharge diagnosis: IUP at term delivered [place] baby: male Hospital course: This patient was admitted at 37 weeks for chronic hypertension with superimposed preeclampsia. She was started on magnesium sulfate for seizure prophylaxis and underwent induction of labor. She ultimately underwent a primary section for failed induction which she tolerated well. She received magnesium sulfate for 24 hours after delivery. She required oxygen supplementation postoperatively, but was weaned to room air and given breathing treatments as needed. The remainder of her postoperative course was complicated by oozing from the right side of the incision. By postoperative day #3, this patient is ambulating, voiding without difficulty, passing flatus, and her pain is well controlled. She requests discharge from the hospital. She will follow-up on October 02 at 3 PM in the office with Dr. Ferreira. Condition at discharge: Stable Disposition: 01 HOME / SELF CARE / HOMELESS - Discharge Diagnoses (1) Anemia Status: Acute Qualifiers: Anemia type: unspecified type Qualified Code(s): D64.9 - Anemia, unspecified (2) Advanced maternal age (AMA), 40 years or greater Status: Acute (3) HSV-2 seropositive Status: Acute (4) Morbid obesity with BMI of 45.0-49.9, adult Status: Acute (5) Pre-eclampsia added to pre-existing hypertension Status: Acute (6) Status post primary low transverse section Status: Acute Plan - Discharge Medications Prescriptions: Clindamycin [Clindamycin CAP] 300 mg PO Q12H #14 cap Ferrous Sulfate [Feosol 325 MG tab] 325 mg PO QDAY #30 tablet labetaloL [Labetalol 200mg TAB] 200 mg PO BID #60 Ibuprofen [Motrin] 600 mg PO Q6H PRN #30 tablet PRN Reason: Pain oxyCODONE /ACETAMINOPHEN [Percocet 5/325] 1 tab PO Q6HR PRN #40 tablet PRN Reason: Pain - Provider Discharge Summary Activity: routine, no sex for 6 weeks, no heavy lifting 4 weeks, no strenuous exercise Diet: routine Instructions: routine Additional instructions: [] Smoking cessation referral if applicable(refer to patient education folder for contact #) [] Refer to [facility]'s [facility] Booklet Call your doctor immediately for: * Fever > 100.5 * Heavy vaginal bleeding ( >1 pad per hour) * Severe persistent headache * Shortness of breath * Reddened, hot, painful area to leg or breast * Drainage or odor from incision. * Keep incision clean and dry at all times and follow doctor's instructions regarding bathing/showering - Follow up plan Follow up: CAROL FERREIRA MD [Primary Care Provider] - 10/02/21 (Appt scheduled for Sunday, October 03, 2021 at 3 pm )
[2021-09-27 18:12] VITALS: BP 108/57
== END 2021-09-27 18:15 | disposition home or self-care (01) | DRG 765 ==
LOC: TRG 18:14 → APU 18:16 → LD 20:12 → TRG 09-21 11:30 → OB 09-26 12:11
PROVIDERS: ADMIT Obstetrics & Gynecology; ATTEND Obstetrics & Gynecology
PROC: 10D00Z1 Extraction of Products of Conception, Low, Open Approach (ICD-10-PCS; principal; 2021-09-24)
PROC: 3E0234Z Introduction of Serum, Toxoid and Vaccine into Muscle, Percutaneous Approach (ICD-10-PCS; 2021-09-27)
DX: O41.03X0 Oligohydramnios, third trimester, not applicable or unspecified (principal); O98.32 Other infections with a predominantly sexual mode of transmission complicating childbirth; Z3A.38 38 weeks gestation of pregnancy; Z37.0 Single live birth; O11.4 Pre-existing hypertension with pre-eclampsia, complicating childbirth; O90.2 Hematoma of obstetric wound; Z20.822 Contact with and (suspected) exposure to COVID-19; A60.00 Herpesviral infection of urogenital system, unspecified; O99.214 Obesity complicating childbirth; E66.01 Morbid (severe) obesity due to excess calories; O75.89 Other specified complications of labor and delivery; O90.81 Anemia of the puerperium; Z23 Encounter for immunization
CPT/HCPCS: 36415; 59200; 71045; 76815; 76819; 80048; 81001; 82565; 83615; 83735; 84112; 84450; 84460; 84550; 85014; 85018; 85027; 86850; 86900; 86901; 94640; G0378; J3490; J7502; J0360; J0595; J1200; J1885; J1940; J2274; J2370; J2405; J2590; J2765; J3010; J3475; J7120; U0003